=== PATIENT | male | born 1995 | race Caucasian/White ===

== ENCOUNTER 2018-09-17 04:38 | Emergency (ER) | payer OTHER, MEDICAID, SELFPAY ==
[2018-09-17 04:40] VITALS: BP 149/94; PULSE 87; RESP 18; TEMP 36.2; O2SAT 96; BMI 37.2
--- NOTE | 2018-09-17 04:55 | ED.URI ---
HPI - URI/Sore Throat General Chief Complaint: Upper Respiratory Symptoms Stated Complaint: sore throat trouble swallowing fever Time Seen by Provider: 09/17/18 04:42 Source: patient Mode of arrival: ambulatory Limitations: no limitations History of Present Illness HPI Narrative: 23-year-old male, nonsmoker, otherwise healthy presents with a chief complaint of a recurrence sore throat. Two weeks ago he developed runny nose, sore throat and subjective fever with some white exudate on his tonsils. He was seen at another facility, had a rapid strep which was negative. He was told that if his symptoms persisted for a few days to come back and get antibiotics which he did and recently finished amoxicillin. He felt better for few days but is sore throat returns. He admits to runny nose, sneezing, cough, sore throat and left ear pain. He denies any fever. He has no nausea, vomiting or diarrhea. He denies chest pain or shortness of breath. MD Complaint: cough, sore throat, rhinorrhea and nasal congestion Onset (ago): week(s) Duration: intermittent Severity: mild Relieving factors: nothing Exacerbating factors: swallowing Description of mucous: clear and watery Able to tolerate fluids by mouth: Yes Treatments prior to arrival: antibiotics Related Data Previous Rx's Medication Instructions Recorded azithromycin [Zithromax Z-Joseph] 0 tab PO QDAY #6 tab 12/14/16 prednisone 50 mg PO AMCC 5 Days #0 tab 12/14/16 Allergies Allergy/AdvReac Type Severity Reaction Status Date / Time peanut Allergy Mild Unverified 11/27/17 11:54 shellfish derived Allergy Mild SHRIMP-THROAT Unverified 11/27/17 11:54 ITCHY Review of Systems Constitutional Denies chills, Denies fever(s), Denies lethargy and Denies weakness Eyes Denies change in vision, Denies eye discharge, Denies irritation and Denies loss of vision ENT Ears, Nose, Mouth, and Throat: Denies change in voice, Reports nasal congestion, Reports nasal discharge, Denies neck pain and Reports sore throat Cardiovascular Denies chest pain, Denies irregular heart rhythm, Denies lightheadedness, Denies palpitations, Denies dyspnea, Denies dyspnea on exertion and Denies orthopnea Respiratory Reports cough, Denies dyspnea, Denies dyspnea on exertion and Denies wheezing Gastrointestinal Gastrointestinal: Denies abdominal pain, Denies change in bowel habits, Denies diarrhea, Denies nausea and Denies vomiting Genitourinary Denies hematuria, Denies flank pain, Denies urinary incontinence and Denies urinary urgency Musculoskeletal Denies neck pain Integumentary/Breasts Denies pruritus, Denies erythema, Denies rash and Denies wounds Neurologic Denies confusion, Denies loss of vision and Denies weakness Psychiatric Denies anxiety, Denies confusion, Denies depression, Denies homicidal ideation and Denies suicidal ideation Endocrine Denies palpitations Hematologic/Lymphatic Denies easy bruising Allergic/Immunologic Denies wheezing Exam Narrative Exam Narrative: GEN: AOx3 and in mild distress EYES: Pupils are equal, round, and reactive to light and accommodation. Extraoccular muscles are intact bilaterally. There is no subconjunctival hemorrhage or exudate. HEENT: No pharyngeal erythema. No tonsillar swelling or exudate. No cervical lymphadenopathy. Clear post nasal drip. TMs clear, no effusion, erythema or bulging. CHEST: Lungs are clear to auscultation bilaterally and free of wheezes, rales, or rhonchi. Heart rate is regular rhythm, there are no murmurs, clicks, rubs, or gallops. There is no chest wall tenderness. ABD: Abdomen is soft and nontender. There is no guarding or rebound. Bowel sounds are normal in all 4 quadrants. There is no mass or organomegaly. EXT: Full painless ROM of all extremities with no loss of sensation or strength. SKIN: Warm, pink, and dry. No erythema or rash Initial Vital Signs Initial Vital Signs: Vital Signs Temperature 97.2 F L 09/17/18 04:40 Pulse Rate 87 09/17/18 04:40 Respiratory Rate 18 09/17/18 04:40 Blood Pressure 149/94 H 09/17/18 04:40 Pulse Oximetry 96 09/17/18 04:40 Course Orders Ordered: ED Orders 09/17/18 04:58 Influenza A and B by PCR Rapid Stat Vital Signs - 8 hr 09/17/18 04:40 Temperature 97.2 F L Pulse Rate 87 Respiratory Rate 18 Blood Pressure 149/94 H Pulse Oximetry 96 MDM - URI/Sore Throat Lab Data Lab Results 09/17/18 Range/Units 04:58 Influenza A & B (PCR) Negative (Negative) Point of Care Testing Rapid Strep A Negative Discharge Plan Departure Patient Disposition: Home Clinical Impression: Viral URI Instructions: DI for Viral Upper Respiratory Infection -- Adult, DI for Viral Pharyngitis Activity Restrictions/Additional Instructions: *You have been diagnosed with [ viral upper respiratory infection, pharyngitis ] *What to do: *Take medications as directed: [id number]-[id number] cough and cold medicine with antihistamine, decongestants, fever sorter lumber straightener, pain reliever *Follow up with your primary care provider in 2-3 days, call for an appointment. Let them know you were seen in the Emergency Department and that we ask that you be seen in follow up *Return to ER if you should have any new, worsening or concerning symptom Prescriptions: No Action azithromycin [Zithromax Z-Joseph] 250 MG tablet PO QDAY Qty: 6 RF: 0 prednisone 50 MG tablet 50 mg PO AMCC 5 Days Qty: 0 RF: 0
[2018-09-17 05:16] LABS: Influenza A and B by PCR Rapid Negative (Negative)
== END 2018-09-17 05:28 | disposition home or self-care (01) ==
PROVIDERS: Emergency Provider Emergency Medicine; PCP Internal Medicine
DX: J06.9 Acute upper respiratory infection, unspecified (principal)
CPT/HCPCS: 87400; 87880; 99282; 99283

== ENCOUNTER 2018-12-01 16:46 | Emergency (ER) | payer OTHER, MEDICAID, SELFPAY ==
[2018-12-01 16:53] VITALS: BP 154/106; PULSE 98; RESP 14; TEMP 36.4; O2SAT 100
--- NOTE | 2018-12-01 16:57 | DI.RAD.S_ITS ---
PROCEDURE: XR FINGER LT MIN 2V INDICATIONS: puncture wound Left 4th finger, now altered sensation TECHNIQUE: AP hand, 2 views of the left fourth finger(s) acquired. COMPARISON: None. FINDINGS: Bones: No fractures or dislocations. No suspicious bony lesions. Soft tissues: No suspicious soft tissue calcifications. No radiodense foreign bodies. IMPRESSION: No fracture. No osseous lesion. If there are persistent symptoms or clinical suspicion for pathology, then repeat radiographs or advanced imaging (CT, MRI or bone scan) should be considered for further evaluation. Dictated by: Margaret Gonzales MD, PhD on 12/01/2018 at 17:42 Approved by: Margaret Gonzales MD, PhD on 12/01/2018 at 17:43
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
[2018-12-01] MEDS: TET,DIPH,PERTUSS(ACELL),VAC/PF 0.5 ML SYRINGE IM (20:18)
[2018-12-01 20:38] VITALS: BP 141/84; PULSE 85; RESP 16; TEMP 36.2; O2SAT 96
== END 2018-12-01 20:35 | disposition home or self-care (01) ==
PROVIDERS: Emergency Provider Emergency Medicine; PCP Internal Medicine
DX: S61.239A Puncture wound without foreign body of unspecified finger without damage to nail, initial encounter (principal); Y99.0 Civilian activity done for income or pay; Z23 Encounter for immunization
CPT/HCPCS: 73140; 90471; 99282; 99283; 90715

== ENCOUNTER 2020-05-17 18:14 | Emergency (ER) | payer OTHER, MEDICAID, SELFPAY ==
[2020-05-17 18:17] VITALS: BP 174/122; PULSE 85; RESP 20; TEMP 36.9; O2SAT 98
[2020-05-17 18:26] VITALS: PULSE 88; RESP 16; O2SAT 99
[2020-05-17] MEDS: ALBUTEROL HFA 200 PUFF/18 GM INH (COVID POS/VENT PTS) INH (18:26)
[2020-05-17 18:51] VITALS: BP 158/96; PULSE 75; O2SAT 100
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
[2020-05-17] MEDS: LIDO 1%/SOD BICARB 8.4% (10ML) 10 ML SYRINGE INJ (20:00)
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
[2020-05-17 20:40] VITALS: BP 148/91; PULSE 81; RESP 16; O2SAT 99
== END 2020-05-17 20:40 | disposition home or self-care (01) ==
PROVIDERS: Emergency Provider Emergency Medicine; PCP Internal Medicine
DX: S41.112A Laceration without foreign body of left upper arm, initial encounter (principal); W25.XXXA Contact with sharp glass, initial encounter
CPT/HCPCS: 12002; 94640; 99283

== ENCOUNTER 2020-11-15 09:15 | Emergency (ER) | payer OTHER, SELFPAY ==
[2020-11-15] VITALS (10 sets, daily range): BP systolic 150–172; BP diastolic 79–111; PULSE 70–92; RESP 18–20; TEMP 36.8; O2SAT 96–100; BMI 33.9
--- NOTE | 2020-11-15 09:51 | DI.RAD.S_ITS ---
PROCEDURE: XR HAND RT MIN 3V INDICATIONS: fall 30 feet :-0 TECHNIQUE: 3 views of the hand(s) acquired. COMPARISON: [facility], , HAND 3V LEFT, 07/19/2010, 14:40. FINDINGS: Bones: No fractures or dislocations. Carpal bones are normally aligned. No suspicious bony lesions. Soft tissues: No suspicious soft tissue calcifications. IMPRESSION: No acute fracture. No osseous lesion. If symptoms and/or clinical suspicion for pathology persist, further assessment with repeat, or advanced imaging (e.g., CT, MRI, or bone scan) may be helpful for further assessment. Dictated by: Arturo Naidu M.D. on 11/15/2020 at 10:13 Approved by: Arturo Naidu M.D. on 11/15/2020 at 10:13
--- NOTE | 2020-11-15 09:51 | DI.RAD.S_ITS ---
PROCEDURE: XR ANKLE RT MIN 3V INDICATIONS: fall 30 feet :-0 TECHNIQUE: 3 views of the ankle were acquired. COMPARISON: None. FINDINGS: Bones: There is a moderately displaced fracture of the distal aspect of the fibula. There is a small bony fragment adjacent to the medial malleolus. Soft tissues: No tibiotalar joint effusion. Achilles tendon appears normal. IMPRESSION: Bimalleolar ankle fracture. Dictated by: Arturo Naidu M.D. on 11/15/2020 at 10:12 Approved by: Arturo Naidu M.D. on 11/15/2020 at 10:12
--- NOTE | 2020-11-15 10:11 | DI.RAD.S_ITS ---
PROCEDURE: XR LUMBAR SPINE 2-3V INDICATIONS: fall 30 feet TECHNIQUE: 2 views of the lumbar spine were acquired. COMPARISON: [facility], , L-SPINE 2-3 VIEWS, 02/08/2017, 14:38. FINDINGS: Bones: 5 nuy-nsu-onupnpi vertebrae are present. There is mild diffuse leftward curvature of the lumbar spine, and otherwise normal bony alignment. No vertebral body compression fractures. No suspicious bony lesions. Mild multilevel endplate osteophyte formation. Soft tissues: Overlying bowel gas pattern is normal. No suspicious soft tissue calcifications. IMPRESSION: Multilevel degenerative disc disease. No acute fracture. No osseous lesion. If symptoms and/or clinical suspicion for pathology persist, further assessment with repeat, or advanced imaging (e.g., CT, MRI, or bone scan) may be helpful for further assessment. Dictated by: Arturo Naidu M.D. on 11/15/2020 at 10:52 Approved by: Arturo Naidu M.D. on 11/15/2020 at 10:52
--- NOTE | 2020-11-15 10:11 | DI.RAD.S_ITS ---
PROCEDURE: XR CALCANEOUS RT MIN 2V INDICATIONS: fall TECHNIQUE: Two views of the calcaneus were acquired. COMPARISON: None. FINDINGS: Bones: No fractures or dislocations. No suspicious bony lesions. Soft tissues: No suspicious calcifications. Achilles tendon appears normal. IMPRESSION: No acute fracture. No osseous lesion. If symptoms and/or clinical suspicion for pathology persist, further assessment with repeat, or advanced imaging (e.g., CT, MRI, or bone scan) may be helpful for further assessment. Dictated by: Arturo Naidu M.D. on 11/15/2020 at 10:51 Approved by: Arturo Naidu M.D. on 11/15/2020 at 10:51
--- NOTE | 2020-11-15 10:19 | DI.CT.S_ITS ---
PROCEDURE: CT HEAD/BRAIN WO CON INDICATIONS: fall 30 feet TECHNIQUE: Noncontrast 4.5 mm thick angled axial sections acquired from the foramen magnum to the vertex, with coronal and sagittal reformats. For radiation dose reduction, the following was used: automated exposure control, adjustment of mA and/or kV according to patient size. COMPARISON: [facility], CT, CT CERVICAL SPINE WO CON, 11/15/2020, 10:31. [facility], CT, HEAD WITHOUT CONTRAST, 01/23/2011, 16:57. FINDINGS: Image quality: Excellent. CSF spaces: Basal cisterns are patent. No extra-axial fluid collections. Ventricles are normal in size and shape. Brain: No midline shift. No intracranial masses or hemorrhage. Beatty-white matter interface is normal. Skull and face: Calvarium and visualized facial bones are intact, without suspicious lesions. Sinuses: Visualized sinuses and mastoids are clear. IMPRESSION: No acute intracranial hemorrhage is seen. No acute intracranial process is seen. No displaced calvarial fracture can be seen. Dictated by: Thaddeus Williamson M.D. on 11/15/2020 at 9:40 Approved by: Thaddeus Williamson M.D. on 11/15/2020 at 9:41
--- NOTE | 2020-11-15 10:19 | DI.CT.S_ITS ---
PROCEDURE: CT CERVICAL SPINE WO CON INDICATIONS: fall 30 feet TECHNIQUE: Noncontrast 3 mm thick sections acquired from the skull base to the T4 level. Sagittal and coronal reformats were then constructed. For radiation dose reduction, the following was used: automated exposure control, adjustment of mA and/or kV according to patient size. COMPARISON: None. FINDINGS: Image quality: Mild motion artifacts. Bones: Straightening of cervical curvature. No fractures or dislocations. Visualized superior ribs are intact. Soft tissues: Prevertebral soft tissues are normal in thickness. No paravertebral hematomas. No apical pneumothoraces. IMPRESSION: No fractures in cervical spine. Straightening of cervical curvature which may be secondary to muscle spasm or positioning. Dictated by: Nidia Cortez M.D. on 11/15/2020 at 9:41 Approved by: Nidia Cortez M.D. on 11/15/2020 at 9:50
[2020-11-15] MEDS: OXYCODONE/ACETAMINOPHEN 5/325 TABLET 2 TAB PO (10:27)
--- NOTE | 2020-11-15 11:54 | ED_ITS ---
HPI - Fall General Chief Complaint: Fall Stated Complaint: fell on right leg/ankle Time Seen by Provider: 11/15/20 10:10 Source: patient Mode of arrival: Wheelchair Limitations: no limitations History of Present Illness HPI Narrative: Patient is a 25-year-old male who presents is after a 30 ft fall. He says he has at least a 32 ft ladder he was on a roof when it slipped and he fell landing on his right ankle. No head injury or loss of consciousness. Complaining only ankle pain there is an obvious ankle deformity. Able to move toes. He denies any neck or back pain no heel pain. No numbness or tingling MD complaint: fall Onset (ago): hour(s) Fall from: other (Off ladder) Fall witnessed: yes, by bystander Place fall occurred: home Loss of consciousness: none Related Data Home Medications Medication Instructions Recorded Confirmed albuterol sulfate [Ventolin HFA] 1 puff INHALATION PRN PRN 12/01/18 05/20/20 budesonide [Pulmicort Flexhaler] 1 puff INHALATION DIRECTED 12/01/18 05/20/20 methylphenidate HCl 20 mg PO DAILY 12/01/18 05/20/20 venlafaxine 150 mg PO DAILY 12/01/18 05/20/20 Previous Rx's Medication Instructions Recorded sulfamethoxazole-trimethoprim 1 tab PO Q12H #14 tab 12/01/18 hydrocodone-acetaminophen 1 tab PO Q6H PRN #14 tab 11/15/20 Allergies Allergy/AdvReac Type Severity Reaction Status Date / Time peanut Allergy Mild Verified 05/20/20 12:12 shellfish derived Allergy Mild SHRIMP-THROAT Verified 05/20/20 12:12 ITCHY Review of Systems Review of Systems ROS Unobtainable: All systems reviewed & are unremarkable except as noted in HPI and below Constitutional Constitutional: Denies chills, Denies fever(s), Denies lethargy and Denies weakness Eyes Eyes: Denies change in vision, Denies eye discharge, Denies irritation and Denies loss of vision ENT Ears, Nose, Mouth, and Throat: Denies change in voice, Denies neck pain and Denies sore throat Cardiovascular Cardiovascular: Denies chest pain, Denies irregular heart rhythm, Denies lightheadedness, Denies palpitations and Denies orthopnea Musculoskeletal Musculoskeletal: Reports as per HPI, Reports deformity, Reports joint swelling, Denies neck pain and Denies numbness Integumentary/Breasts Skin/Breast: Denies pruritus, Denies erythema, Denies rash and Denies wounds Neurologic Neurologic: Denies loss of vision, Denies numbness and Denies weakness Endocrine Endocrine: Denies palpitations Patient History Medical History (Updated 11/15/20 @ 12:27 by Abi Dinero DO) No active medical problems Surgical History No pertinent past surgical history Social History Smoking Status: Never smoker Smoking Status: Never smoker alcohol intake frequency: 0-2 drinks per day Substance Use Type: marijuana Exam Initial Vital Signs Initial Vital Signs: Vital Signs Temperature 98.2 F 11/15/20 09:36 Pulse Rate 80 11/15/20 09:36 Respiratory Rate 20 11/15/20 09:36 Blood Pressure 170/104 H 11/15/20 09:36 Pulse Oximetry 98 11/15/20 09:36 GENERAL: Well-appearing, well-nourished and in no acute distress. HEENT: Head normocephalic,, EOMI, pupils reactive, face symmetric, moist mucous membranes, no hemotympanum, no septal hematoma NECK: Supple, full range of motion, no step-offs, nontender on vertebrae CARDIOVASCULAR: Regular rate and rhythm without murmurs, rubs or gallops. RESPIRATORY: Breath sounds equal bilaterally, no wheezes rales or rhonchi. No crepitations, no subcutaneous air, chest is nontender, no signs of trauma ABDOMEN: Soft, nontender. Normoactive bowel sounds all 4 quadrants. No guarding or rebound. BACK: Nontender vertebrae, no step-offs, no contusions PELVIS: stable. EXTREMITIES: Normal range of motion, no clubbing or edema. Pelvis stable Right upper extremity: Within normal limits Left upper extremity: Within normal limits Right lower extremity: Obvious lateral swelling and deformity distal pedal pulse intact cap refill less than is 2 seconds no heel pain knees within normal limits no fibular head pain Left lower extremity:Within normal limits NEUROLOGICAL: Cranial nerves II through XII grossly intact. Normal gait and speech. SKIN: Warm, dry, no petechiae, no rashes or lesions, no contusions or ecchymosis Procedures Orthopedic Splinting/Casting Injury #1: Side: right Lower Extremity Injury Location: ankle Lower Extremity Immobilizer: posterior splint and stirrup splint Other Orthopedic Equipment: crutches Post splinting neuro exam: intact Post splinting vascular exam: intact Placed by: Provider Course Orders Ordered: Discontinued Medications Oxycodone/Acetaminophen (Oxycodone/Acetaminophen 5/325 Tablet) 2 tab PO NOW ONE Stop: 11/15/20 10:14 Last Admin: 11/15/20 10:27 Dose: 2 tab Documented by: RAKESH Vital Signs Vital signs: Vital Signs - 8 hr 11/15/20 11:30 11/15/20 11:54 11/15/20 12:00 Pulse Rate 77 78 80 Blood Pressure 158/111 H 165/107 H Pulse Oximetry 96 98 97 11/15/20 12:30 11/15/20 12:31 Pulse Rate 70 76 Blood Pressure 150/79 H Pulse Oximetry 96 97 MDM - Fall Imaging Data CT scan - head: Radiologist's Impression: PROCEDURE: CT HEAD/BRAIN WO CON INDICATIONS: fall 30 feet TECHNIQUE: Noncontrast 4.5 mm thick angled axial sections acquired from the foramen magnum to the vertex, with coronal and sagittal reformats. For radiation dose reduction, the following was used: automated exposure control, adjustment of mA and/or kV according to patient size. COMPARISON: [facility], CT, CT CERVICAL SPINE WO CON, 11/15/2020, 10:31. [facility], CT, HEAD WITHOUT CONTRAST, 01/23/2011, 16:57. FINDINGS: Image quality: Excellent. CSF spaces: Basal cisterns are patent. No extra-axial fluid collections. Ventricles are normal in size and shape. Brain: No midline shift. No intracranial masses or hemorrhage. Beatty-white matter interface is normal. Skull and face: Calvarium and visualized facial bones are intact, without suspicious lesions. Sinuses: Visualized sinuses and mastoids are clear. IMPRESSION: No acute intracranial hemorrhage is seen. No acute intracranial process is seen. No displaced calvarial fracture can be seen. Dictated by: Thaddeus Williamson M.D. on 11/15/2020 at 9:40 CT - cervical spine: Radiologist's Impression: PROCEDURE: CT CERVICAL SPINE WO CON INDICATIONS: fall 30 feet TECHNIQUE: Noncontrast 3 mm thick sections acquired from the skull base to the T4 level. Sagittal and coronal reformats were then constructed. For radiation dose reduction, the following was used: automated exposure control, adjustment of mA and/or kV according to patient size. COMPARISON: None. FINDINGS: Image quality: Mild motion artifacts. Bones: Straightening of cervical curvature. No fractures or dislocations. Visualized superior ribs are intact. Soft tissues: Prevertebral soft tissues are normal in thickness. No paravertebral hematomas. No apical pneumothoraces. IMPRESSION: No fractures in cervical spine. Straightening of cervical curvature which may be secondary to muscle spasm or positioning. Dictated by: Nidia Cortez M.D. on 11/15/2020 at 9:41 Approved by: Nidia Cortez M.D. on 11/15/2020 at 9:50 Extremity x-ray #1: Radiologist's Impression: PROCEDURE: XR ANKLE RT MIN 3V INDICATIONS: fall 30 feet :-0 TECHNIQUE: 3 views of the ankle were acquired. COMPARISON: None. FINDINGS: Bones: There is a moderately displaced fracture of the distal aspect of the fibula. There is a small bony fragment adjacent to the medial malleolus. Soft tissues: No tibiotalar joint effusion. Achilles tendon appears normal. IMPRESSION: Bimalleolar ankle fracture. Dictated by: Arturo Naidu M.D. on 11/15/2020 at 10:12 Extremity x-ray #2: Radiologist's Impression: PROCEDURE: XR HAND RT MIN 3V INDICATIONS: fall 30 feet :-0 TECHNIQUE: 3 views of the hand(s) acquired. COMPARISON: [facility], HAND 3V LEFT, 07/19/2010, 14:40. FINDINGS: Bones: No fractures or dislocations. Carpal bones are normally aligned. No suspicious bony lesions. Soft tissues: No suspicious soft tissue calcifications. IMPRESSION: No acute fracture. No osseous lesion. If symptoms and/or clinical suspicion for pathology persist, further assessment with repeat, or advanced imaging (e.g., CT, MRI, or bone scan) may be helpful for further assessment. Dictated by: Arturo Naidu M.D. on 11/15/2020 at 10:13 Extremity x-ray #3: Radiologist's Impression: PROCEDURE: XR CALCANEOUS RT MIN 2V INDICATIONS: fall TECHNIQUE: Two views of the calcaneus were acquired. COMPARISON: None. FINDINGS: Bones: No fractures or dislocations. No suspicious bony lesions. Soft tissues: No suspicious calcifications. Achilles tendon appears normal. IMPRESSION: No acute fracture. No osseous lesion. If symptoms and/or clinical suspicion for pathology persist, further assessment with repeat, or advanced imaging (e.g., CT, MRI, or bone scan) may be helpful for further assessment. Dictated by: Arturo Naidu M.D. on 11/15/2020 at 10:51 XR Lumbar: Radiologist's Impression: PROCEDURE: XR LUMBAR SPINE 2-3V INDICATIONS: fall 30 feet TECHNIQUE: 2 views of the lumbar spine were acquired. COMPARISON: [facility], , L-SPINE 2-3 VIEWS, 02/08/2017, 14:38. FINDINGS: Bones: 5 [id number] vertebrae are present. There is mild diffuse leftward curvature of the lumbar spine, and otherwise normal bony alignment. No vertebral body compression fractures. No suspicious bony lesions. Mild multilevel endplate osteophyte formation. Soft tissues: Overlying bowel gas pattern is normal. No suspicious soft tissue calcifications. IMPRESSION: Multilevel degenerative disc disease. No acute fracture. No osseous lesion. If symptoms and/or clinical suspicion for pathology persist, further assessment with repeat, or advanced imaging (e.g., CT, MRI, or bone scan) may be helpful for further assessment. Dictated by: Arturo Naidu M.D. on 11/15/2020 at 10:52 Approved by: Arturo Naidu M.D. on 11/15/2020 at 10:52 [facility] Narrative Medical decision making narrative: 12:15 Dr. Palmer reviewed ankle x-ray at this time I agrees with splinting and follow-up Discharge Plan Departure Patient Disposition: Home Clinical Impression: Ankle fracture, right Qualifiers: Encounter type: initial encounter Fracture type: closed Qualified Code(s): S82.891A - Other fracture of right lower leg, initial encounter for closed fracture Instructions: DI for Ankle Fracture Activity Restrictions/Additional Instructions: *You have been diagnosed with right ankle fracture *What to do: Keep splint on at all times, no weight-bearing use crutches. May ice through the splint *Continue to take medications as directed [place] 1-2 tablets every 6 hours if needed for severe pain--> SENT TO [facility] *Follow up with your primary care provider in 2-3 days Call orthopedics today to schedule follow-up appointment in about 1 week *Return to ER if you should have numbness tingling, increasing pain or any new, worsening or concerning symptoms CONTROLLED SUBSTANCE DISCHARGE (Narcotoic/benzodiazepine/Flexeril/Phenergan) 1. You have been prescribed narcotic medications, it does have acetaminophen/Tylenol/paracetamol in it, DO NOT TAKE MORE THAN 4,00mg in 24 hours of Tylenol. TRAMADOL DOES NOT CONTAIN TYLENOL 2. Please understand that we cannot provide further refills of narcotics, benzodiazepines or controlled substances through the ED and her pain management will need to be through your provider. 3. While on these medications you cannot drive or operate heavy machinery. 4. You cannot sign legal documents or perform any duties such as this. 5. As long as you're taking opiate pain medications he should also be taking a stool softener such as Colace, Dulcolax, MiraLAX or prune juice, to help avoid constipation. Prescriptions: New hydrocodone-acetaminophen 5-325 mg tablet 1 tab PO Q6H PRN (Reason: pain) Qty: 14 RF: 0 No Action venlafaxine 150 mg capsule,extended release 24hr 150 mg PO DAILY RF: 0 methylphenidate HCl 20 mg tablet extended release 20 mg PO DAILY RF: 0 albuterol sulfate [Ventolin HFA] 90 mcg/actuation HFA aerosol inhaler 1 puff Inhalation PRN PRN (Reason: Shortness Of Breath) RF: 0 Pulmicort Flexhaler 180 mcg/actuation aerosol powdr breath activated 1 puff Inhalation DIRECTED RF: 0 sulfamethoxazole-trimethoprim 800-160 mg tablet 1 tab PO Q12H Qty: 14 RF: 0 Referrals: [facility] [Provider Group] Santiago Knowles MD [Primary Care Provider] -
== END 2020-11-15 12:39 | disposition home or self-care (01) ==
PROVIDERS: Emergency Provider Emergency Medicine; PCP Internal Medicine
DX: S82.841A Displaced bimalleolar fracture of right lower leg, initial encounter for closed fracture (principal); W11.XXXA Fall on and from ladder, initial encounter
CPT/HCPCS: 29515; 70450; 72100; 72125; 73130; 73610; 73650; 99284

== ENCOUNTER → 2020-11-29 10:05 | Outpatient (CLI) | payer OTHER, MEDICAID, SELFPAY ==
[2020-11-29] MEDS: COVID-19 VACC #1, MRNA(MOD) 100 MCG/0.5 ML VIAL IM (10:16)
== END ==
PROVIDERS: PCP Internal Medicine; Visit Provider Internal Medicine
DX: Z23 Encounter for immunization (principal)
CPT/HCPCS: 0011A; 91301

== ENCOUNTER → 2020-12-28 10:07 | Outpatient (CLI) | payer OTHER, MEDICAID, SELFPAY ==
[2020-12-28] MEDS: COVID-19 VACC #2, MRNA(MOD) 100 MCG/0.5 ML VIAL IM (10:26)
== END ==
PROVIDERS: PCP Internal Medicine; Visit Provider Internal Medicine
DX: Z23 Encounter for immunization (principal)
CPT/HCPCS: 0012A; 91301

== ENCOUNTER 2021-06-01 02:30 | Emergency (ER) | payer OTHER, MEDICAID, SELFPAY ==
--- NOTE | 2021-06-01 02:32 | DI.RAD.S_ITS ---
PROCEDURE: XR HAND RT MIN 3V INDICATIONS: fall onto glass, laceration TECHNIQUE: 3 views of the hand(s) acquired. COMPARISON: [facility], CR, XR HAND RT MIN 3V, 11/15/2020, 9:54. FINDINGS: Bones: No fractures or dislocations. Carpal bones are normally aligned. No suspicious bony lesions. Soft tissues: No suspicious soft tissue calcifications. No radiodense foreign body. IMPRESSION: No fracture. No osseous lesion. If symptoms and/or clinical suspicion for pathology persists, further assessment with repeat radiographs (7-10 days) or advanced imaging (e.g. CT, MRI or bone scan) should be considered. Dictated by: Margaret Gonzales MD, PhD on 06/01/2021 at 7:53 Approved by: Margaret Gonzales MD, PhD on 06/01/2021 at 7:54
--- NOTE | 2021-06-01 02:33 | ED_ITS ---
HPI - Extremity Problem General Chief complaint: Wound/Laceration Stated complaint: cut hand Time Seen by Provider: 06/01/21 02:32 Source: patient Mode of arrival: Ambulatory Limitations: no limitations History of Present Illness HPI Narrative: This is a 26-year-old male who has a laceration to his right hand over the thenar eminence. Patient states he was in a hotel room when he tripped and fell on outstretched hand onto a glass. Patient states the glass was on the floor. He is unsure hip all the pieces were present and accounted for afterwards. He states it bled quite a bit. He has some tingling in his thumb that started on his drive here but denies any other numbness or tingling elsewhere. He states it seems like things are moving appropriately. This happened about 12 30 in the morning he initially went to the emergency department in [place] but had an extended wait so came to us. States he has a history of asthma. Denies any other medical issues. States he has screws in his left. States he is otherwise healthy. States he is up-to-date on his tetanus. No tobacco, occasional alcohol. Patient states he did have a small amount of alcohol earlier in the evening. Denies any illicit. Related Data Home Medications Medication Instructions Recorded Confirmed albuterol sulfate 90 mcg/actuation 1 puff INHALATION PRN PRN 12/01/18 05/20/20 aerosol inhaler budesonide 180 mcg/actuation 1 puff INHALATION DIRECTED 12/01/18 05/20/20 breath activated powder inhaler methylphenidate HCl 20 mg 20 mg PO DAILY 12/01/18 05/20/20 tablet,extended release venlafaxine 150 mg 150 mg PO DAILY 12/01/18 05/20/20 capsule,extended release 24 hr Previous Rx's Medication Instructions Recorded sulfamethoxazole 800 1 tab PO Q12H #14 tab 12/01/18 mg-trimethoprim 160 mg tablet hydrocodone 5 mg-acetaminophen 325 1 tab PO Q6H PRN #14 tab 11/15/20 mg tablet Allergies Allergy/AdvReac Type Severity Reaction Status Date / Time peanut Allergy Mild Verified 05/20/20 12:12 shellfish derived Allergy Mild SHRIMP-THROAT Verified 05/20/20 12:12 ITCHY Review of Systems Review of Systems ROS Unobtainable: All systems reviewed & are unremarkable except as noted in HPI and below Patient History Medical History (Updated 06/01/21 @ 02:40 by Renate Le DO) No active medical problems Surgical History No pertinent past surgical history Social History Smoking Status: Never smoker Smoking Status: Never smoker alcohol intake frequency: 0-2 drinks per day Substance Use Type: marijuana Exam Narrative Exam Narrative: GENERAL: Alert and oriented x three, male in mild distress. HEENT: Head normocephalic, atraumatic, EOMI, pupils reactive, face symmetric, moist mucous membranes NECK: Supple, full range of motion CARDIOVASCULAR: Regular rate and rhythm without murmurs, rubs or gallops. RESPIRATORY: Breath sounds equal bilaterally, no wheezes rales or rhonchi. ABDOMEN: Soft, nontender. Normoactive bowel sounds all 4 quadrants. No guarding or rebound, rigidity, no mass EXTREMITIES: Normal range of motion, no clubbing or edema. Neurovascularly intact. Patient has a 3 cm laceration over the thenar eminence of his right hand. It is gapped. No obvious tendon or ligamentous involvement, it is into the subcutaneous tissue. Has flexion extension of all 5 fingers he is able to make the okay sign. He is neurovascularly intact in all 5 fingers with cap refill less than 2 seconds. Sensation to light touch with 2+ radial pulse. NEUROLOGICAL: Cranial nerves II through XII grossly intact. Moving all extre mities SKIN: Warm, dry, no petechiae, no rashes or lesions otherwise noted. Initial Vital Signs Initial Vital Signs: Vital Signs Temperature 97.8 F 06/01/21 02:45 Pulse Rate 100 H 06/01/21 02:45 Respiratory Rate 16 06/01/21 02:45 Blood Pressure 157/94 H 06/01/21 02:45 Pulse Oximetry 96 06/01/21 02:45 Procedures Laceration Repair Laceration 1: Time of procedure: 03:53 Site: hand (palmar) Side (If applicable): right Size (cm): 3.5 Description: flap and irregular Depth: simple, single layer and involves muscle layer Local Anesthetic: lidocaine 1% Amount of anesthesia used (mL): 6 Pre-repair: wound explored, irrigated extensively and deep structures intact Skin layer closed with: nylon Size (cm): 4-0 Number of sutures: 7 Technique: simple, interrupted Course Orders Ordered: ED Orders 06/01/21 02:32 XR hand RT min 3V Stat Discontinued Medications Bacitracin (Bacitracin Oint 0.9 Gm Pckt) 2 applic TOP NOW ONE Stop: 06/01/21 04:01 Last Admin: 06/01/21 04:03 Dose: 2 applic Documented by: JAIME Lidocaine/Sodium Bicarbonate (Lido 1%/Sod Bicarb 8.4% (10ml) 10 Ml Syringe) 10 ml INJ NOW ONE Stop: 06/01/21 02:33 Last Admin: 06/01/21 03:27 Dose: 10 ml Documented by: CHETAN Ondansetron HCl (Ondansetron 4 Mg Odt) 4 mg SL NOW ONE Stop: 06/01/21 03:23 Last Admin: 06/01/21 03:27 Dose: 4 mg Documented by: CHETAN Reevaluation(s) Reevaluation #1: Patient taken lightheaded while we were numbing and suturing the patient and had nausea and vomiting and diaphoresis. Patient states feeling the needles made him feel quite sick. Did receive 1 tablet of Zofran. Vital Signs Vital signs: Vital Signs - 8 hr 06/01/21 02:45 06/01/21 04:29 Temperature 97.8 F Pulse Rate 100 H 69 Respiratory Rate 16 20 Blood Pressure 157/94 H 141/65 H Pulse Oximetry 96 99 [facility] - Extremity (Nontraumatic) Imaging Data Extremity x-ray #1: Radiologist's Impression: nap, no radioopaque FB noted. [facility] Narrative Medical decision making narrative: This is a 26-year-old male comes with complaint of laceration to the thenar eminence of the right hand. Patient's dominant hand is his left. He has full range of motion. I am unable to visualize any obvious tendon involvement but he does complain of some tingling to the thumb. Patient had suture repair which was in but full for patient having foot quite lightheaded tracie Hink numbing and diaphoretic and nauseated and vomited several times. This did improve. Patient had repair of his laceration. He and I discussed would be appropriate to follow up with Orthopedic surgery based on his symptoms. Referral was given. Wound care directions as well and return precautions. Patient was observed for. Here in the department he was able to ambulate without issue and feels back to normal at this time. Discharge Plan Departure Patient Disposition: Home Clinical Impression: Laceration of right palm Qualifiers: Encounter type: initial encounter Qualified Code(s): S61.411A - Laceration without foreign body of right hand, initial encounter Instructions: DI for Laceration Repair Activity Restrictions/Additional Instructions: Follow-up with orthopedic surgery recheck if having any difficulty with movement of your fingers your continue numbness or tingling. Referral is included below. Call this morning to set up an appointment. You will need to follow up for suture removal in 7-10 days with either primary care, urgent care or emergency department. Can take Tylenol up to a 1000 mg every 8 hours and/or ibuprofen up to 800 mg every 8 hours. Wound Care: Keep wound(s) clean and dry. Wash daily with soap and water only. Do not use over the counter products (alcohol or peroxide)on the wounds unless instructed by a physician. If wound condition worsens (increased/expanding redness, developing fluid blisters, or worsening pain), either contact your doctor for an urgent re- assessment , or return to the Emergency Department. Return to the Emergency Department for any new or worsening symptoms. Return to the ED, urgent care, or visit a primary care doctor for removal or suture or nhung in 7-10 days. Return if fever greater than 100.4 Fahrenheit, increased swelling, increasing pain or worsening symptoms such as increased discharge or spreading redness. No worsening numbness, tingling or weakness, inability to flex or extend her fingers. Rapidly worsening pain, color changes or other new or concerning symptoms. Prescriptions: No Action venlafaxine 150 mg capsule,extended release 24hr 150 mg PO DAILY RF: 0 methylphenidate HCl 20 mg tablet extended release 20 mg PO DAILY RF: 0 albuterol sulfate [Ventolin HFA] 90 mcg/actuation HFA aerosol inhaler 1 puff Inhalation PRN PRN (Reason: Shortness Of Breath) RF: 0 Pulmicort Flexhaler 180 mcg/actuation aerosol powdr breath activated 1 puff Inhalation DIRECTED RF: 0 sulfamethoxazole-trimethoprim 800-160 mg tablet 1 tab PO Q12H Qty: 14 RF: 0 hydrocodone-acetaminophen 5-325 mg tablet 1 tab PO Q6H PRN (Reason: pain) Qty: 14 RF: 0 Referrals: Kell Duran MD [Physician] - Santiago Knowles MD [Primary Care Provider] - Stand Alone Forms: Work Release Note
[2021-06-01 02:45] VITALS: BP 157/94; PULSE 100; RESP 16; TEMP 36.6; O2SAT 96
[2021-06-01] MEDS: LIDO 1%/SOD BICARB 8.4% (10ML) 10 ML SYRINGE INJ (03:27)
[2021-06-01] MEDS: ONDANSETRON 4 MG ODT SL (03:27)
[2021-06-01] MEDS: BACITRACIN OINT 0.9 GM PCKT 2 APPLIC TOP (04:03)
[2021-06-01 04:29] VITALS: BP 141/65; PULSE 69; RESP 20; O2SAT 99
== END 2021-06-01 04:31 | disposition home or self-care (01) ==
PROVIDERS: Emergency Provider Emergency Medicine; PCP Internal Medicine
DX: S61.411A Laceration without foreign body of right hand, initial encounter (principal); W01.110A Fall on same level from slipping, tripping and stumbling with subsequent striking against sharp glass, initial encounter
CPT/HCPCS: 12002; 73130; 99283; 99284

== ENCOUNTER 2021-08-13 21:59 | Emergency (ER) | payer OTHER, MEDICAID, SELFPAY ==
--- NOTE | 2021-08-13 22:15 | ED_ITS ---
HPI - General Adult General Chief complaint: Psychiatric Symptoms Stated complaint: Vol SI Time Seen by Provider: 08/13/21 22:04 Source: patient and police Mode of arrival: other (Police) Limitations: no limitations History of Present Illness HPI narrative: Patient is a 26-year-old male. Does have a history of depression and anxiety. He states when he was in grade school he saw therapist but has not seen anyone since then. He takes no medications for depression or anxiety. Does take methylphenidate. He states that over the past couple months he has had difficulty with depression. This is mostly stemming around the fact that his grandmother is ?running out of money ?and cannot pay her rent and he is having difficulty finding a place for her to stay here in the local area. Patient's father is . Mother is no longer around. Patient does have a job. Does have a car. Does rent his own room. He states that the holiday has been especially hard for him. This evening he was drinking alcohol. He started to have depressive thoughts. He stated that he had thoughts of taking all of his medications at once in order to kill himself. He stated that he texted 911. One of the local police officers came and talked with him. Patient states that he actually feels much better after talking with the chief of police. He states that he is no longer suicidal because he like to talking with the chief of police and was able to express feelings to the chief of police. He did come here v oluntarily. Related Data Home Medications Medication Instructions Recorded Confirmed albuterol sulfate 90 mcg/actuation 1 puff INHALATION PRN PRN 12/01/18 05/20/20 aerosol inhaler budesonide 180 mcg/actuation 1 puff INHALATION DIRECTED 12/01/18 05/20/20 breath activated powder inhaler methylphenidate HCl 20 mg 20 mg PO DAILY 12/01/18 05/20/20 tablet,extended release venlafaxine 150 mg 150 mg PO DAILY 12/01/18 05/20/20 capsule,extended release 24 hr Previous Rx's Medication Instructions Recorded sulfamethoxazole 800 1 tab PO Q12H #14 tab 12/01/18 mg-trimethoprim 160 mg tablet hydrocodone 5 mg-acetaminophen 325 1 tab PO Q6H PRN #14 tab 11/15/20 mg tablet Allergies Allergy/AdvReac Type Severity Reaction Status Date / Time peanut Allergy Mild Verified 05/20/20 12:12 shellfish derived Allergy Mild SHRIMP-THROAT Verified 05/20/20 12:12 ITCHY Review of Systems Constitutional Constitutional: Reports system reviewed and no additional complaints, except as documented Cardiovascular Cardiovascular: Reports system reviewed and no additional complaints, except as documented Respiratory Respiratory: Reports system reviewed and no additional complaints, except as documented Gastrointestinal Gastrointestinal: Reports system reviewed and no additional complaints, except as documented Psychiatric Psychiatric: Reports system reviewed and no additional complaints, except as documented and Reports as per HPI Allergic/Immunologic Allergic/Immunologic: Reports system reviewed and no additional complaints, except as documented Patient History Medical History (Updated 08/13/21 @ 23:36 by Shawn Hernandez DO) No active medical problems Surgical History No pertinent past surgical history Social History Smoking Status: Never smoker Smoking Status: Never smoker alcohol intake frequency: 0-2 drinks per day Substance Use Type: marijuana Exam Initial Vital Signs Initial Vital Signs: Vital Signs Temperature 97.5 F L 08/13/21 22:34 Pulse Rate 110 H 08/13/21 22:34 Respiratory Rate 20 08/13/21 22:34 Blood Pressure 126/76 08/13/21 22:34 Pulse Oximetry 99 08/13/21 22:34 Const General: cooperative, healthy appearing, comfortable, well developed and well groomed Limitations: mental status not altered HENNE Head: normal to inspection and normocephalic Resp Effort & Inspection: normal respiratory effort Cardio Rate: tachycardic GI Inspection: normal to inspection Skin General: no rashes or lesions noted Neuro General: patient alert, patient awake, patient oriented x3 and moves all extremities Extrem General: normal to inspection and capillary refill normal Psych Appearance: grossly normal and well kempt Mood: not anxious Affect: sad Attitude: cooperative Judgment: fair Course Orders Ordered: ED Orders 08/13/21 22:06 Consult to VETERINARY ASSISTANT - Wall And Floor Tiler Stat 08/13/21 22:25 Acetaminophen Stat COVID19 -Nasal swab/Pre-Proc Stat Complete Blood Count AUTO DIFF Stat Comprehensive Metabolic Panel Stat Ethanol (ETOH) Stat Lipase Stat Thyroid Stimulating Hormone Stat 08/13/21 22:48 Urinalysis and Microscopic Stat Urine Drug Screen, Rapid Stat Vital Signs Vital signs: Vital Signs - 8 hr 08/13/21 22:34 Temperature 97.5 F L Pulse Rate 110 H Respiratory Rate 20 Blood Pressure 126/76 Pulse Oximetry 99 Medical Decision Making Lab Data Lab results reviewed: Yes I reviewed the patient's lab results. Result diagrams: 08/13/21 22:25 08/13/21 22:25 Labs: Lab Results 08/13/21 08/13/21 08/13/21 Range/Units 22:25 22:25 22:25 WBC 7.9 (4.5-11.0) X10^3/uL RBC 5.14 (4.5-5.9) X10^6/uL Hgb 16.5 (13.5-17.5) g/dL Hct 46.3 (41-53) % MCV 90.1 (80-100) fL MCH 32.0 (26-34) PG MCHC 35.5 (30-36) % RDW 13.6 (11.6-14.8) % Plt Count 249 (150-400) X10^3/uL Neut % (Auto) 54.5 (50-75) % Lymph % (Auto) 30.3 (25-40) % [place] % (Auto) 6.0 (3-14) % Eos % (Auto) 8.3 H (2-4) % Baso % (Auto) 0.9 (0-2) % Neut # (Auto) 4300 (5047-8476) /uL Lymph # (Auto) 2400 (1949-3488) /uL [place] # (Auto) 500 (0-900) /uL Eos # (Auto) 700 H (0-450) /uL Baso # (Auto) 100 (0-100) /uL Sodium 143 (137-145) mmol/L Potassium 3.5 (3.4-5.1) mmol/L Chloride 107 (98-107) mmol/L Carbon Dioxide 23 (22-32) mmol/L BUN 7 L (9-20) mg/dL Creatinine 0.94 (0.66-1.25) mg/dL Estimated GFR > 60.0 (>60) mL/min BUN/Creatinine Ratio 7.4 (6-22) Glucose 115 H (70-100) mg/dL Calcium 9.2 (8.4-10.2) mg/dL Total Bilirubin 0.4 (0.2-1.3) mg/dL AST 25 (17-59) IU/L ALT 22 (<50) IU/L Alkaline Phosphatase 61 (38-126) U/L Total Protein 8.1 (6.3-8.2) g/dL Albumin 4.8 (3.5-5.0) g/dL Globulin 3.3 (1.7-4.1) g/dL Albumin/Globulin Ratio 1.5 (1.0-2.8) Lipase 70 (23-300) U/L TSH 4.07 (0.47-4.68) uIU/mL Urine Color Urine Appearance Urine pH (4.5-8.0) Ur Specific [place] (1.000-1.035) Urine Protein (Negative) Urine Glucose (UA) (Negative) g/dL Urine Ketones (NEGATIVE) Urine Occult Blood (Negative) Urine Nitrate (Negative) Urine Bilirubin (NEGATIVE) Urine Urobilinogen (0.2) E.U./dL Ur Leukocyte Esterase (NEGATIVE) Urine RBC (0-5/HPF) Urine WBC (0-5/HPF) Urine Bacteria (None) Ur Culture Indicated? U Opiates 300ng/mL cut (Negative) Ur Oxycodone Screen (Negative) Urine Methadone Screen (Negative) Acetaminophen < 10 L (10-30) ug/mL Ur Barbiturates Screen (Negative) U Tricyclic Antidepress (Negative) Ur Phencyclidine Scrn (Negative) Ur Amphetamines Screen (Negative) U Methamphetamines Scrn (Negative) Ur MDMA Scrn (Ecstasy) (Negative) U Benzodiazepines Scrn (Negative) Urine Cocaine Screen (Negative) U Marijuana (THC) Screen (Negative) Ethyl Alcohol 173 H ( - 10) mg/dL SARS-CoV-2 (PCR) (Negative) 08/13/21 08/13/21 08/13/21 Range/Units 22:25 22:48 22:48 WBC (4.5-11.0) X10^3/uL RBC (4.5-5.9) X10^6/uL Hgb (13.5-17.5) g/dL Hct (41-53) % MCV (80-100) fL MCH (26-34) PG MCHC (30-36) % RDW (11.6-14.8) % Plt Count (150-400) X10^3/uL Neut % (Auto) (50-75) % Lymph % (Auto) (25-40) % [place] % (Auto) (3-14) % Eos % (Auto) (2-4) % Baso % (Auto) (0-2) % Neut # (Auto) (3628-0503) /uL Lymph # (Auto) (4501-4746) /uL [place] # (Auto) (0-900) /uL Eos # (Auto) (0-450) /uL Baso # (Auto) (0-100) /uL Sodium (137-145) mmol/L Potassium (3.4-5.1) mmol/L Chloride (98-107) mmol/L Carbon Dioxide (22-32) mmol/L BUN (9-20) mg/dL Creatinine (0.66-1.25) mg/dL Estimated GFR (>60) mL/min BUN/Creatinine Ratio (6-22) Glucose (70-100) mg/dL Calcium (8.4-10.2) mg/dL Total Bilirubin (0.2-1.3) mg/dL AST (17-59) IU/L ALT (<50) IU/L Alkaline Phosphatase (38-126) U/L Total Protein (6.3-8.2) g/dL Albumin (3.5-5.0) g/dL Globulin (1.7-4.1) g/dL Albumin/Globulin Ratio (1.0-2.8) Lipase (23-300) U/L TSH (0.47-4.68) uIU/mL Urine Color Yellow Urine Appearance Clear Urine pH 7.0 (4.5-8.0) Ur Specific [place] <=1.005 (1.000-1.035) Urine Protein Negative (Negative) Urine Glucose (UA) Negative (Negative) g/dL Urine Ketones Negative (NEGATIVE) Urine Occult Blood Negative (Negative) Urine Nitrate Negative (Negative) Urine Bilirubin Negative (NEGATIVE) Urine Urobilinogen 0.2 (0.2) E.U./dL Ur Leukocyte Esterase Negative (NEGATIVE) Urine RBC None seen (0-5/HPF) Urine WBC None seen (0-5/HPF) Urine Bacteria None seen (None) Ur Culture Indicated? Cult not indicated U Opiates 300ng/mL cut Negative (Negative) Ur Oxycodone Screen Negative (Negative) Urine Methadone Screen Negative (Negative) Acetaminophen (10-30) ug/mL Ur Barbiturates Screen Negative (Negative) U Tricyclic Antidepress Negative (Negative) Ur Phencyclidine Scrn Negative (Negative) Ur Amphetamines Screen Negative (Negative) U Methamphetamines Scrn Negative (Negative) Ur MDMA Scrn (Ecstasy) Negative (Negative) U Benzodiazepines Scrn Negative (Negative) Urine Cocaine Screen Negative (Negative) U Marijuana (THC) Screen Positive H (Negative) Ethyl Alcohol ( - 10) mg/dL SARS-CoV-2 (PCR) Negative (Negative) MDM Narrative Medical decision making narrative: During his time here patient is calm. He states that he is no longer suicidal. He stated that the thing that helped him the most was talking to the chief of police. He states he has had suicidal thoughts on a daily basis for at least the past 6 months. Has never tried to hurt himself in the past. He was unsure exactly what may things peak earlier today but currently feels much better. He states he would like to go home. He states he feels safe going home. He stated that he would contact the the police or the crisis line or return to the em ergency department if he started to have thoughts of hurting himself again. He states that he does need to go to work tomorrow. He states he does not go to work you will not be able to pay rent which is due the end of this week. This does provide insight into his ability to think forward ended future events. I contacted the [facility] and they will contact him tomorrow at around noon. I told the patient this. He stated that he would answer the phone and talk with them. He can also get information from them with regard to long-term counseling. The police were willing to come to the emergency department in take him home because the tax season not running given the weather and the snow on the ground. Patient is agreeable with discharge Discharge Plan Departure Patient Disposition: Home Clinical Impression: Suicidal ideation, Alcohol intoxication Instructions: DI for Suicidal Ideation-Adult Activity Restrictions/Additional Instructions: You should be receiving a phone call tomorrow at noon from the [facility] to check in. Continue to take all of your medications as directed. Please contact the crisis lines at the numbers that were provided if you start to have thoughts of wanting to hurt yourself again. Prescriptions: No Action venlafaxine 150 mg capsule,extended release 24hr 150 mg PO DAILY 0RF methylphenidate HCl 20 mg tablet extended release 20 mg PO DAILY 0RF albuterol sulfate [Ventolin HFA] 90 mcg/actuation HFA aerosol inhaler 1 puff Inhalation PRN PRN (Reason: Shortness Of Breath) 0RF Pulmicort Flexhaler 180 mcg/actuation aerosol powdr breath activated 1 puff Inhalation DIRECTED 0RF sulfamethoxazole-trimethoprim 800-160 mg tablet 1 tab PO Q12H Qty: 14 0RF hydrocodone-acetaminophen 5-325 mg tablet 1 tab PO Q6H PRN (Reason: pain) Qty: 14 0RF Referrals: Santiago Knowles MD [Primary Care Provider] -
[2021-08-13 22:34] VITALS: BP 126/76; PULSE 110; RESP 20; TEMP 36.4; O2SAT 99
[2021-08-13 22:40] LABS: Add Manual Diff / Slide Review NO; Basophils Absolute Auto 100 /uL (0-100); Basophils Percent Auto 0.9 % (0-2); Eosinophils Absolute Auto 700 /uL (0-450); Eosinophils Percent Auto 8.3 % (2-4); Hematocrit 46.3 % (41-53); Hemoglobin 16.5 g/dL (13.5-17.5); Lymphocytes Absolute Auto 2400 /uL (1100-4500); Lymphocytes Percent Auto 30.3 % (25-40); Mean Corpuscular HGB Conc 35.5 % (30-36); Mean Corpuscular Volume 90.1 fL (80-100); Monocytes Absolute Auto 500 /uL (0-900); Neutrophils Absolute Auto 4300 /uL (1500-7000); Neutrophils Percent Auto 54.5 % (50-75); Platelet Count 249 X10^3/uL (150-400); Red Blood Cell Count 5.14 X10^6/uL (4.5-5.9); Red Cell Distribution Width 13.6 % (11.6-14.8); White Blood Cell Count 7.9 X10^3/uL (4.5-11.0)
[2021-08-13 22:43] LABS: Acetaminophen < 10 ug/mL (10-30); Alanine Aminotransferase 22 IU/L (<50); Albumin 4.8 g/dL (3.5-5.0); Albumin Globulin Ratio 1.5 (1.0-2.8); Alkaline Phosphatase 61 U/L (38-126); Aspartate Aminotransferase 25 IU/L (17-59); BUN Creatinine Ratio 7.4 (6-22); Bilirubin Total 0.4 mg/dL (0.2-1.3); Blood Urea Nitrogen 7 mg/dL (9-20); Calcium 9.2 mg/dL (8.4-10.2); Carbon Dioxide 23 mmol/L (22-32); Chloride 107 mmol/L (98-107); Estimated Glomerular Filt Rate > 60.0 mL/min (>60); Ethanol (ETOH) 173 mg/dL; Globulin 3.3 g/dL (1.7-4.1); Glucose 115 mg/dL (70-100); HEMOLYSIS < 15 (0-50); Lipase 70 U/L (23-300); Potassium 3.5 mmol/L (3.4-5.1); Sodium 143 mmol/L (137-145); Total Protein 8.1 g/dL (6.3-8.2)
[2021-08-13 22:50] LABS: Appearance Urine UA CLEAR; Bilirubin Urine UA NEGATIVE (NEGATIVE); Color Urine UA YELLOW; Glucose Urine UA NEGATIVE (Negative); Ketones Urine UA NEGATIVE (NEGATIVE); Leukocyte Esterase Urine UA NEGATIVE (NEGATIVE); Nitrite Urine UA NEGATIVE (Negative); Occult Blood Urine UA NEGATIVE (Negative); Protein Urine UA NEGATIVE (Negative); Specific Gravity Urine UA <=1.005 (1.000-1.035); Urobilinogen Urine UA 0.2 E.U./dL (0.2)
[2021-08-13 22:55] LABS: UR Morphine/Opiate cutoff 300 Negative (Negative); Ur Creatinine Normal (Normal); Ur Specific Gravity Normal (Normal); Urine Amphetamines Negative (Negative); Urine Barbiturates Negative (Negative); Urine Cocaine Negative (Negative); Urine MDMA Negative (Negative); Urine Methamphetamines Negative (Negative); Urine Phencyclidine Negative (Negative); Urine Tetrahydrocannabinol Positive (Negative); Urine pH Normal (Normal)
[2021-08-13 22:56] LABS: Bacteria Urine None Seen; RBC Urine None Seen (0-5/HPF); Urine Benzodiazepines Negative (Negative); Urine Methadone Negative (Negative); Urine Oxycodone Negative (Negative); Urine Tricyclic Antidepressant Negative (Negative); WBC Urine None Seen (0-5/HPF)
[2021-08-13 22:57] LABS: Culture Indicated Urine Cult Not Indicated
[2021-08-13 23:02] LABS: COVID19 -Nasal RAPID Negative (Negative)
[2021-08-13 23:22] LABS: Thyroid Stimulating Hormone 4.07 uIU/mL (0.47-4.68)
== END 2021-08-13 23:46 | disposition home or self-care (01) ==
PROVIDERS: Emergency Provider Emergency Medicine; PCP Internal Medicine
DX: R45.851 Suicidal ideations (principal); F10.129 Alcohol abuse with intoxication, unspecified; Y90.6 Blood alcohol level of 120-199 mg/100 ml; Z20.822 Contact with and (suspected) exposure to COVID-19
CPT/HCPCS: 80053; 80305; 80320; 80329; 81001; 83690; 84443; 85025; 87635; 99283; C9803; G0480

== ENCOUNTER 2022-01-18 08:59 | Emergency (ER) | payer OTHER, MEDICAID, SELFPAY ==
[2022-01-18 09:00] VITALS: BP 157/96; PULSE 84; RESP 14; TEMP 36.9; O2SAT 99; BMI 33.3
[2022-01-18] MEDS: TET,DIPH,PERTUSS(ACELL),VAC/PF 0.5 ML SYRINGE IM (09:33)
--- NOTE | 2022-01-18 10:19 | ED_ITS ---
HPI - Wound/Laceration General Chief Complaint: Wound/Laceration Stated Complaint: Cut right thumb with Olivier knife Time Seen by Provider: 01/18/22 10:08 Source: patient Mode of arrival: Ambulatory Limitations: no limitations History of Present Illness HPI narrative: This is a 26-year-old male with laceration to his thumb. Patient was cleaning out his car he had a utility blade underneath some papers and did not realize that it was exposed. He grabbed it cut his distal thumb. Patient is unsure of his tetanus status. He states it would stop bleeding this morning so he came in for evaluation. He states that occurred today. He denies any other injuries. No numbness or loss of sensation. Patient denies medical issues otherwise. No tobacco, occasional alcohol, occasional THC. Related Data Home Medications Medication Instructions Recorded Confirmed budesonide 180 mcg/actuation 1 puff INHALATION DIRECTED 12/01/18 05/20/20 breath activated powder inhaler methylphenidate HCl 20 mg 20 mg PO DAILY 12/01/18 05/20/20 tablet,extended release venlafaxine 150 mg 150 mg PO DAILY 12/01/18 05/20/20 capsule,extended release 24 hr Previous Rx's Medication Instructions Recorded sulfamethoxazole 800 1 tab PO Q12H #14 tab 12/01/18 mg-trimethoprim 160 mg tablet hydrocodone 5 mg-acetaminophen 325 1 tab PO Q6H PRN #14 tab 11/15/20 mg tablet albuterol sulfate 90 mcg/actuation 1 puff INHALATION PRN PRN #8.5 g 11/16/21 aerosol inhaler Allergies Allergy/AdvReac Type Severity Reaction Status Date / Time peanut Allergy Mild Verified 01/18/22 09:05 shellfish derived Allergy Mild SHRIMP-THROAT Verified 01/18/22 09:05 ITCHY Review of Systems Review of Systems ROS Unobtainable: All systems reviewed & are unremarkable except as noted in HPI and below Patient History Medical History (Updated 01/18/22 @ 10:51 by Renate Le DO) No active medical problems Surgical History No pertinent past surgical history Social History Smoking Status: Never smoker Smoking Status: Never smoker alcohol intake frequency: 0-2 drinks per day Substance Use Type: marijuana Exam Narrative Exam Narrative: GENERAL: Alert and oriented x three, male in mild distress. HEENT: Head normocephalic, atraumatic, EOMI, pupils reactive, face symmetric, moist mucous membranes NECK: Supple, full range of motion EXTREMITIES: Normal range of motion, no clubbing or edema. Neurovascularly intact. Patient has a linear laceration over the distal ulnar side of the thumb. No subcutaneous tissue exposed. Very minimal gap. NEUROLOGICAL: Cranial nerves II through XII grossly intact. Moving all extremities SKIN: Warm, dry, no petechiae, no rashes or lesions. Initial Vital Signs Initial Vital Signs: Vital Signs Temperature 98.4 F 01/18/22 09:00 Pulse Rate 84 01/18/22 09:00 Respiratory Rate 14 01/18/22 09:00 Blood Pressure 157/96 H 01/18/22 09:00 Pulse Oximetry 99 01/18/22 09:00 Procedures Laceration Repair Laceration 1: Time of procedure: 10:35 Site: hand (thumb) Side (If applicable): right Size (cm): 1 Description: linear Depth: simple, single layer Pre-repair: wound explored, irrigated extensively and deep structures intact Skin layer closed with: dermabond Course Orders Ordered: Discontinued Medications Diphtheria/Tetanus/Acell Pertussis (Tet,Diph,Pertuss(Acell),Vac/Pf 0.5 Ml Syringe) 0.5 ml IM .ONCE ONE Stop: 01/18/22 09:08 Last Admin: 01/18/22 09:33 Dose: 0.5 ml Documented by: TONA Vital Signs Vital signs: Vital Signs - 8 hr 01/18/22 09:00 Temperature 98.4 F Pulse Rate 84 Respiratory Rate 14 Blood Pressure 157/96 H Pulse Oximetry 99 MDM - Wound/Laceration MDM Narrative Medical decision making narrative: [age] year old male with unknown tetanus status which was updated the department with a superficial laceration the distal thumb. Amenable to Dermabond. Patient does not require sutures. Wound was cleansed thoroughly in the department. Tetanus updated. Wound care directions given and return precautions discussed. Discharge Plan Departure Patient Disposition: Home Clinical Impression: Laceration of thumb, right Instructions: DI for Laceration Repair-Skin Glue Activity Restrictions/Additional Instructions: Wound Care: Keep wound(s) clean and dry. Wash daily with soap and water only. Do not use over the counter products (alcohol or peroxide)on the wounds unless instructed by a physician. Do not use triple antibiotic ointment or Neosporin on the Dermabond it will cause it to break down. If wound condition worsens (increased/expanding redness, developing fluid blisters, or worsening pain), either contact your doctor for an urgent re-as sessment , or return to the Emergency Department. Return to the Emergency Department for any new or worsening symptoms. Return if fever greater than 100.4 Fahrenheit, increased swelling, increasing pain or worsening symptoms such as increased discharge or spreading redness. Prescriptions: No Action albuterol sulfate 90 mcg/actuation HFA aerosol inhaler 1 puff Inhalation PRN PRN (Reason: Shortness Of Breath) Qty: 8.5 1RF Rx Instructions: PT WILL NEED TO BE SEEN BEFORE NEXT RENEWAL 11/16/21 venlafaxine 150 mg capsule,extended release 24hr 150 mg PO DAILY 0RF methylphenidate HCl 20 mg tablet extended release 20 mg PO DAILY 0RF Pulmicort Flexhaler 180 mcg/actuation aerosol powdr breath activated 1 puff Inhalation DIRECTED 0RF sulfamethoxazole-trimethoprim 800-160 mg tablet 1 tab PO Q12H Qty: 14 0RF hydrocodone-acetaminophen 5-325 mg tablet 1 tab PO Q6H PRN (Reason: pain) Qty: 14 0RF Referrals: Santiago Knowles MD [Primary Care Provider] - Visit Report Forms: Patient Portal/API
[2022-01-18 11:15] VITALS: BP 159/92; PULSE 94; RESP 18; O2SAT 99
== END 2022-01-18 11:16 | disposition home or self-care (01) ==
PROVIDERS: Emergency Provider Emergency Medicine; PCP Internal Medicine
DX: S61.011A Laceration without foreign body of right thumb without damage to nail, initial encounter (principal); W45.8XXA Other foreign body or object entering through skin, initial encounter; Z23 Encounter for immunization
CPT/HCPCS: 12001; 90471; 99283; 90715

== ENCOUNTER 2023-03-06 16:58 | Emergency (ER) | payer OTHER, MEDICAID, SELFPAY ==
[2023-03-06 17:25] VITALS: BP 142/88; PULSE 103; RESP 20; TEMP 36.7; O2SAT 98; BMI 33.3
--- NOTE | 2023-03-06 17:30 | DI.RAD.S_ITS ---
PROCEDURE: XR ANKLE LT MIN 3V INDICATIONS: Fall TECHNIQUE: 3 views of the ankle were acquired. COMPARISON: [facility], CR, XR ANKLE RT MIN 3V, 11/15/2020, 9:54. FINDINGS: Bones: No visible fractures around the ankle mortise. There are wispy calcifications which may be cortical avulsion fragments, but curvilinear, overlying the talonavicular articulation seen on the lateral view. Bone alignment remains normal. Soft tissues: No tibiotalar joint effusion. Achilles tendon appears normal. There is mild dorsal soft tissue swelling in the area of wispy calcification. IMPRESSION: 1. Mild swelling and possible cortical avulsions along the dorsal hindfoot at the talonavicular articulation. Dictated by: Mitzy Tariq M.D. on 03/06/2023 at 18:15 Approved by: Mitzy Tariq M.D. on 03/06/2023 at 18:17
--- NOTE | 2023-03-06 18:05 | ED.LOWEXIN ---
HPI - Extremity Injury (Lower) <Cameron Simon PA-C - Last Filed: 03/06/23 18:39> General Chief Complaint: Extremity Injury, Lower Stated Complaint: lt ankle injury Time Seen by Provider: 03/06/23 18:05 Source: patient Mode of arrival: Ambulatory History of Present Illness HPI Narrative: This is a 27-year-old male presents emergency department due to ankle pain after missing a step and twisted his left ankle and having a ladder fall on it. History of previously broken ankle at the similar area. Patient denies any numbness to the distal toes. He reports increased pain with range of motion but still able to move about the ankle. No breaks in the skin or bleeding. Related Data Home Medications Medication Instructions Recorded Confirmed budesonide 180 mcg/actuation 1 puff inhalation DIRECTED 12/01/18 01/26/22 breath activated powder inhaler methylphenidate HCl 20 mg 20 mg PO DAILY 12/01/18 01/26/22 tablet,extended release venlafaxine 150 mg 150 mg PO DAILY 12/01/18 01/26/22 capsule,extended release 24 hr sertraline 100 mg tablet 150 mg PO DAILY 01/26/22 01/26/22 Previous Rx's Medication Instructions Recorded hydrocodone 5 mg-acetaminophen 325 1 tab PO Q6H PRN pain #14 tabs 11/15/ mg tablet albuterol sulfate 90 mcg/actuation 1 puff inhalation PRN PRN 11/16/21 aerosol inhaler Shortness Of Breath #8.5 grams Allergies Allergy/AdvReac Type Severity Reaction Status Date / Time peanut Allergy Mild Verified 03/06/23 17:29 shellfish derived Allergy Mild SHRIMP-THROAT Verified 03/06/23 17:29 ITCHY Review of Systems <Cameron Simon PA-C - Last Filed: 03/06/23 18:39> Review of Systems Narrative: GENERAL: Denies chills, fatigue, malaise, fever, sweats. HEENT: Denies sinus pain, ear pain, sore throat, difficulty swallowing, dizziness. RESPIRATORY: Denies dyspnea, cough, wheezing, hemoptysis, sputum. CARDIOVASCULAR: Denies chest pain, palpitations, orthopnea, edema, GASTROINTESTINAL: Denies nausea, vomiting, abdominal pain, diarrhea, constipation, melena. : Denies dysuria, frequency, incontinence, hematuria, urinary retention. MUSCULOSKELETAL: Reports left ankle pain SKIN: Denies rash, skin lesions, or other NEUROLOGIC: Denies weakness, headache, numbness, change in speech, confusion, seizures, incoordination. PSYCHIATRIC: No concerning psychosocial issues. 12 point review of systems is negative except for those stated above Patient History <Cameron Simon PA-C - Last Filed: 03/06/23 18:39> Medical History (Updated 03/06/23 @ 18:38 by Cameron Simon PA-C) No active medical problems Surgical History No pertinent past surgical history Social History Smoking Status: Never smoker Smoking Status: Never smoker alcohol intake frequency: 0-2 drinks per day Substance Use Type: marijuana Exam <Cameron Simon PA-C - Last Filed: 03/06/23 18:39> Narrative Exam Narrative: GENERAL: Well-developed patient, in mild distress. HEAD: Atraumatic. Normocephalic. EYES: Pupils equal round and reactive. Extraocular motions intact. No scleral icterus. No injection or drainage. ENT: Nose without bleeding, purulent drainage. Throat without erythema, tonsillar hypertrophy or exudate. Airway patent. NECK: Trachea midline. Non tender EXTREMITIES: Tenderness to palpation to the left lateral malleolus as well as dorsal aspect of the foot. Neurovascularly intact throughout. No breaks in the skin. BACK: Nontender without deformity or crepitance. No flank tenderness. NEURO: AOx3. SKIN: No rash or erythema of visible areas Initial Vital Signs Initial Vital Signs: Vital Signs Temperature 98.1 F 03/06/23 17:25 Pulse Rate 103 H 03/06/23 17:25 Respiratory Rate 03/06/23 17:25 Blood Pressure 142/88 H 03/06/23 17:25 Pulse Oximetry 98 03/06/23 17:25 Oxygen Delivery Method Room Air 03/06/23 17:25 <Renate Le DO - Last Filed: 03/06/23 19:52> Initial Vital Signs Initial Vital Signs: Vital Signs Temperature 98.1 F 03/06/23 17:25 Pulse Rate 103 H 03/06/23 17:25 Respiratory Rate 03/06/23 17:25 Blood Pressure 142/88 H 03/06/23 17:25 Pulse Oximetry 98 03/06/23 17:25 Oxygen Delivery Method Room Air 03/06/23 17:25 Procedures <Cameron Simon PA-C - Last Filed: 03/06/23 18:39> Orthopedic Splinting/Casting Injury #1: Time of procedure: 18:35 Side: left Lower Extremity Injury Location: foot Lower Extremity Immobilizer: posterior splint Other Orthopedic Equipment: crutches Post splinting neuro exam: intact Post splinting vascular exam: intact Placed by: Nursing Course <Cameron Simon PA-C - Last Filed: 03/06/23 18:39> Orders Ordered: ED Orders 03/06/23 17:30 XR ankle LT min 3V Stat Vital Signs Vital signs: Vital Signs - 8 hr 03/06/23 17:25 03/06/23 19:00 Temperature 98.1 F Pulse Rate 103 H 90 Respiratory Rate 20 16 Blood Pressure 142/88 H 140/80 Pulse Oximetry 98 99 Oxygen Delivery Method Room Air Room Air <Renate Le DO - Last Filed: 03/06/23 19:52> Orders Ordered: ED Orders 03/06/23 17:30 XR ankle LT min 3V Stat Vital Signs Vital signs: Vital Signs - 8 hr 03/06/23 17:25 03/06/23 19:00 Temperature 98.1 F Pulse Rate 103 H 90 Respiratory Rate 20 16 Blood Pressure 142/88 H 140/80 Pulse Oximetry 98 99 Oxygen Delivery Method Room Air Room Air MDM - Extremity Injury (Lower) <Cameron Simon PA-C - Last Filed: 03/06/23 18:39> Imaging Data Extremity x-ray #1: Radiologist's Impression: [address] [address] XRay Report Signed Patient: Jayy Lowery MR#: [id number] : 1995 Acct:[id number] Age/Sex: 27 / M Date of Service: 03/06/23 Loc: ED Accession Number: [id number] ?? Procedure: XR ankle LT min 3V Ordering Provider: Renate Le D.O. PROCEDURE:? XR ANKLE LT MIN 3V ? INDICATIONS:? Fall ? TECHNIQUE:? 3 views of the ankle were acquired.? ? COMPARISON:? [facility], CR, XR ANKLE RT MIN 3V, 11/15/2020, 9:54. ? FINDINGS:? ? Bones:? No visible fractures around the ankle mortise.? There are wispy calcifications which may be cortical avulsion fragments, but curvilinear, overlying the talonavicular articulation seen on the lateral view.? Bone alignment remains normal. ? Soft tissues:? No tibiotalar joint effusion.? Achilles tendon appears normal.? There is mild dorsal soft tissue swelling in the area of wispy calcification. ? ? IMPRESSION:? ? 1. Mild swelling and possible cortical avulsions along the dorsal hindfoot at the talonavicular articulation. ? Dictated by: Mitzy Tariq M.D. on 03/06/2023 at 18:15 ? ? Approved by: Mitzy Tariq M.D. on 03/06/2023 at 18:17 ? MDM Narrative Medical decision making narrative: MDM * differential diagnosis includes but not limited to left ankle sprain, left ankle or foot fracture, soft tissue injury * Prior records reviewed: Patient has not been here for similar complaints in the past * My lab interpretation: None obtained * My imgaing interpretation: Left ankle x-ray negative for fractures. * Clinical Decision Rules/Scores evaluated: None * Independent discussions with: None ED Course: This is a 27-year-old male presenting to the emergency department due to a left ankle injury as well as a ladder falling on his left foot. X-ray was taken which showed ?possible cortical avulsion along the dorsal hindfoot at the talonavicular articulation ?. This was discussed with my attending physician, who recommended splinting and having orthopedic follow up. Splint was applied without complications. Patient will follow up with Orthopedics. Shared Decision Making: Discussed plan with patient who is comfortable with the plan. Social Considerations: None Disposition: Discharged to home Discharge Plan Departure Patient Disposition: Home Clinical Impression: Foot fracture Instructions: DI for Fracture Activity Restrictions/Additional Instructions: Thank you for coming to the [facility] Emergency Department today. On your x-ray it appears that there may be very small avulsion fractures to the top of your foot. Please follow up with Orthopedics and remain nonweightbearing until you are able to follow up with the orthopedist. Please use ibuprofen and Tylenol for the pain. I hope you feel better soon. Prescriptions: No Action albuterol sulfate 90 mcg/actuation HFA aerosol inhaler 1 puff Inhalation PRN PRN (Reason: Shortness Of Breath) Qty: 8.5 1RF Rx Instructions: PT WILL NEED TO BE SEEN BEFORE NEXT RENEWAL 11/16/21 sertraline 100 mg tablet 150 mg PO DAILY venlafaxine 150 mg capsule,extended release 24hr 150 mg PO DAILY methylphenidate HCl 20 mg tablet extended release 20 mg PO DAILY Pulmicort Flexhaler 180 mcg/actuation aerosol powdr breath activated 1 puff Inhalation DIRECTED hydrocodone-acetaminophen 5-325 mg tablet 1 tab PO Q6H PRN (Reason: pain) Qty: 14 0RF Referrals: Santiago Knowles MD [Primary Care Provider] - Kristian Arias MD [Physician] - (Follow up on cortical avulsion fractures along the dorsal hindfoot at the talonavicular articulation) Stand Alone Forms: Patient Portal/API <Renate Le DO - Last Filed: 03/06/23 19:52> Cosign ED Attending Cosignature Attestation: I was immediately available in the department for consultation. Documentation has been reviewed. Case was discussed, plan for splint, weightbearing as tolerated with follow-up with orthopedic surgery.
[2023-03-06 19:00] VITALS: BP 140/80; PULSE 90; RESP 16; O2SAT 99
== END 2023-03-06 19:00 | disposition home or self-care (01) ==
PROVIDERS: Emergency Provider Physician Assistant Medical; PCP Internal Medicine
DX: S92.902A Unspecified fracture of left foot, initial encounter for closed fracture (principal); X50.1XXA Overexertion from prolonged static or awkward postures, initial encounter; W22.8XXA Striking against or struck by other objects, initial encounter
CPT/HCPCS: 29515; 73610; 99283

== ENCOUNTER 2023-04-07 04:43 | Emergency (ER) | payer OTHER, SELFPAY ==
[2023-04-07] VITALS (7 sets, daily range): BP systolic 111–153; BP diastolic 64–99; PULSE 84–115; RESP 18–20; TEMP 37; O2SAT 95–98; BMI 33.3
[2023-04-07 05:31] LABS: Ur Creatinine Normal (Normal); Ur Specific Gravity Normal (Normal); Urine Cocaine Positive (Negative); Urine Tetrahydrocannabinol Positive (Negative); Urine pH Normal (Normal)
[2023-04-07 05:32] LABS: UR Morphine/Opiate cutoff 300 Negative (Negative); Urine Amphetamines Negative (Negative); Urine Barbiturates Negative (Negative); Urine Benzodiazepines Negative (Negative); Urine MDMA Negative (Negative); Urine Methadone Negative (Negative); Urine Methamphetamines Negative (Negative); Urine Oxycodone Negative (Negative); Urine Phencyclidine Negative (Negative); Urine Tricyclic Antidepressant Negative (Negative)
[2023-04-07 05:33] LABS: Add Manual Diff / Slide Review NO; Basophils Absolute Auto 0 /uL (0-100); Basophils Percent Auto 0.7 % (0-2); Eosinophils Absolute Auto 100 /uL (0-450); Eosinophils Percent Auto 3.1 % (2-4); Hemoglobin 14.9 g/dL (13.5-17.5); Lymphocytes Absolute Auto 1400 /uL (1100-4500); Lymphocytes Percent Auto 30.2 % (25-40); Mean Corpuscular HGB Conc 34.7 % (30-36); Mean Corpuscular Hemoglobin 31.6 PG (26-34); Mean Corpuscular Volume 91.1 fL (80-100); Monocytes Absolute Auto 200 /uL (0-900); Monocytes Percent Auto 4.7 % (3-14); Neutrophils Absolute Auto 2800 /uL (1500-7000); Neutrophils Percent Auto 61.3 % (50-75); Platelet Count 233 X10^3/uL (150-400); Red Blood Cell Count 4.72 X10^6/uL (4.5-5.9); Red Cell Distribution Width 12.8 % (11.6-14.8); White Blood Cell Count 4.6 X10^3/uL (4.5-11.0)
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
[2023-04-07 05:47] LABS: Alanine Aminotransferase 25 IU/L (<50); Albumin 4.9 g/dL (3.5-5.0); Albumin Globulin Ratio 1.5 (1.0-2.8); Alkaline Phosphatase 57 U/L (38-126); Aspartate Aminotransferase 31 IU/L (17-59); BUN Creatinine Ratio 7.9 (6-22); Bilirubin Total 0.4 mg/dL (0.2-1.3); Blood Urea Nitrogen 7 mg/dL (9-20); Calcium 8.8 mg/dL (8.4-10.2); Carbon Dioxide 26 mmol/L (22-32); Chloride 107 mmol/L (98-107); Estimated Glomerular Filt Rate > 60 mL/min (>60); Ethanol (ETOH) 295 mg/dL; Globulin 3.3 g/dL (1.7-4.1); Glucose 104 mg/dL (70-100); HEMOLYSIS < 15 (0-50); Potassium 3.4 mmol/L (3.4-5.1); Sodium 146 mmol/L (137-145); Total Protein 8.2 g/dL (6.3-8.2)
--- NOTE | 2023-04-07 07:14 | PC.NURSE ---
Pt belongings in secure cabinet behind nurses station
--- NOTE | 2023-04-07 07:57 | PC.NURSE ---
This [employer] HANGER introduced self to pt and provided breakfast. pt went back to sleep. breakfast on table beside bed in safety container.
[2023-04-07] MEDS: ACETAMINOPHEN 325 MG TABLET 975 MG PO (08:20)
[2023-04-07 08:50] LABS: Ethanol (ETOH) 241 mg/dL
--- NOTE | 2023-04-07 09:00 | PC.NURSE ---
RN spoke with [facility] intake. [facility] has beds and requested packet to review. Packed faxed. Waiting for call back.
[2023-04-07 09:15] LABS: Thyroid Stimulating Hormone 1.84 uIU/mL (0.47-4.68)
[2023-04-07 09:24] LABS: COVID19 -Nasal RAPID Negative (Negative)
[2023-04-07] MEDS: KETOROLAC 30 MG/ML VIAL 15 MG IV (13:43)
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
[2023-04-07] MEDS: LORazepam 2 MG/ML INJ 1 MG IV ×2 (16:51→17:37)
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
== END 2023-04-07 20:45 ==
PROVIDERS: Emergency Medicine; Emergency Provider Emergency Medicine; PCP Internal Medicine
DX: R45.851 Suicidal ideations (principal); F32.A Depression, unspecified; Z20.822 Contact with and (suspected) exposure to COVID-19
CPT/HCPCS: 36415; 70450; 71260; 72125; 74177; 80053; 80305; 80320; 81003; 84443; 85025; 87635; 93005; 96374; 96375; 96376; 99285; C9803; J1885; J2060; Q9967

== ENCOUNTER 2023-06-17 23:33 | Emergency (ER) | payer OTHER, MEDICAID, SELFPAY ==
[2023-06-17 23:38] VITALS: O2SAT 99
[2023-06-17 23:41] VITALS: BP 171/104; PULSE 96; RESP 20; TEMP 36.9; O2SAT 99; BMI 33.3
--- NOTE | 2023-06-17 23:50 | DI.RAD.S_ITS ---
PROCEDURE: XR CHEST 1V INDICATIONS: cough/asthma/chest pain TECHNIQUE: One view of the chest was acquired. COMPARISON: [facility], CT, CT CHEST ABD PEL W CON, 04/07/2023, 5:48. [facility], CR, CHEST 2 VIEW, 12/14/2016, 5:13. FINDINGS: Surgical changes and devices: None. Lungs and pleura: Bilateral lower lobe infiltrates suspicious for pneumonia. No pleural effusions or pneumothorax. Mediastinum: Mediastinal contours appear normal. Heart size is normal. Bones and chest wall: No suspicious bony lesions. Overlying soft tissues appear unremarkable. IMPRESSION: Bilateral lower lobe infiltrates suspicious for pneumonia. Dictated by: Nidia Cortez M.D. on 06/18/2023 at 0:08 Approved by: Nidia Cortez M.D. on 06/18/2023 at 0:10
[2023-06-17] MEDS: ALBUTEROL HFA PREPACK 1 BOX MISC (23:55)
--- NOTE | 2023-06-17 23:58 | PC.NURSE ---
Patient states he does not want to talk to social work.
[2023-06-18] VITALS: PULSE 96; O2SAT 98
--- NOTE | 2023-06-18 00:08 | ED_ITS ---
HPI - SOB/Dyspnea General Chief Complaint: Shortness of Breath/Dyspnea Stated Complaint: SOB Time Seen by Provider: 06/17/23 23:50 Source: patient and EMS Mode of arrival: EMS History of Present Illness HPI Narrative: Patient is a 28-year-old male history of asthma presenting today with shortness of breath. He reports that he ran out of his inhaler he is had increasing difficulty breathing throughout the day. No fever or chills. But does feel like he has a productive cough. Received nebulizer with EMS in his overall feeling better. He tried to call his primary care for in inhaler but was not successful. Related Data Home Medications Medication Instructions Recorded Confirmed budesonide 180 mcg/actuation 1 puff inhalation DIRECTED 12/01/18 01/26/22 breath activated powder inhaler methylphenidate HCl 20 mg 20 mg PO DAILY 12/01/18 01/26/22 tablet,extended release venlafaxine 150 mg 150 mg PO DAILY 12/01/18 01/26/22 capsule,extended release 24 hr sertraline 100 mg tablet 150 mg PO DAILY 01/26/22 01/26/22 Previous Rx's Medication Instructions Recorded hydrocodone 5 mg-acetaminophen 325 1 tab PO Q6H PRN pain #14 tabs 11/15/20 mg tablet albuterol sulfate 90 mcg/actuation 1 puff inhalation PRN PRN 11/16/21 aerosol inhaler Shortness Of Breath #8.5 grams hydrocodone 5 mg-acetaminophen 325 1 tab PO Q8H PRN pain #14 tabs 03/07/23 mg tablet amoxicillin 500 mg capsule 1,000 mg (2 x 500 mg) PO TID 5 06/18/23 days #30 caps azithromycin 250 mg tablet See Rx Instructions PO .COMPLEX #6 06/18/23 tabs Allergies Allergy/AdvReac Type Severity Reaction Status Date / Time peanut Allergy Mild Itchy Verified 06/17/23 23:56 throat shellfish derived Allergy Mild SHRIMP-THROAT Verified 06/17/23 23:57 ITCHY Patient History Medical History (Updated 06/18/23 @ 00:20 by Abi Dinero DO) No active medical problems Surgical History No pertinent past surgical history Social History Smoking Status: Current some day smoker Smoking Status: Current some day smoker alcohol intake frequency: 0-2 drinks per day Substance Use Type: marijuana Exam Initial Vital Signs Initial Vital Signs: Vital Signs Pulse Oximetry 99 06/17/23 23:38 GENERAL: Alert well-appearing 28-year-old and in no acute distress. HEENT: Head atraumatic,EOMI, pupils reactive, face symmetric, moist mucous membranes CARDIOVASCULAR: Regular rate and rhythm without murmurs, rubs or gallops. RESPIRATORY: Breath sounds equal bilaterally, no wheezes rales or rhonchi. Speaks in full sentences ABDOMEN: Soft, nontender. Normoactive bowel sounds all 4 quadrants. No guarding or rebound. EXTREMITIES: Normal range of motion, no clubbing or edema. Neurovascularly intact NEUROLOGICAL: Alert and oriented x4. SKIN: Warm, dry, no laceration, no petechiae, no rashes or lesions. Course Orders Ordered: ED Orders 06/17/23 23:49 Consult to [employer] - [employer] Professor Stat 06/17/23 23:50 XR chest 1V Stat EKG-12 Lead Stat Discontinued Medications Albuterol (Albuterol Hfa Prepack) 1 box MISC SEEINSTR ONE Stop: 06/17/23 23:51 Last Admin: 06/17/23 23:55 Dose: 1 box Documented By: SHARON Vital Signs Vital signs: Vital Signs - 8 hr 06/17/23 23:38 06/17/23 23:41 06/18/23 00:00 Temperature 98.5 F Pulse Rate 96 H 96 H Respiratory Rate 20 Blood Pressure 171/104 H Pulse Oximetry 99 99 98 Oxygen Delivery Method Room Air Room Air 06/18/23 00:38 Temperature Pulse Rate 89 Respiratory Rate Blood Pressure 162/88 H Pulse Oximetry 98 Oxygen Delivery Method Room Air MDM - SOB/Dyspnea Imaging Data Chest x-ray: Radiologist's Impression: PROCEDURE: XR CHEST 1V INDICATIONS: cough/asthma/chest pain TECHNIQUE: One view of the chest was acquired. COMPARISON: [facility], CT, CT CHEST ABD PEL W CON, 04/07/2023, 5:48. [facility], CR, CHEST 2 VIEW, 12/14/2016, 5:13. FINDINGS: Surgical changes and devices: None. Lungs and pleura: Bilateral lower lobe infiltrates suspicious for pneumonia. No pleural effusions or pneumothorax. Mediastinum: Mediastinal contours appear normal. Heart size is normal. Bones and chest wall: No suspicious bony lesions. Overlying soft tissues appear unremarkable. IMPRESSION: Bilateral lower lobe infiltrates suspicious for pneumonia. Dictated by: Nidia Cortez M.D. on 06/18/2023 at 0:08 Approved by: Nidia Cortez M.D. on 06/18/2023 at 0:10 ECG Data Interpretation: Normal sinus rhythm rate 89 LA interval 152 QRS [address] changes or T- wave inversion MDM Narrative Medical decision making narrative: Patient 28-year-old male history of asthma presenting today with increasing shortness of breath. He received albuterol prior to arrival reports that he is feeling better but still having some chest pain. X-ray does show bilateral lobe infiltrates. Although questionable clinically correlates. Lungs are very clear no evidence of wheezing or asthma at this time although he was treated before arrival. No fever chills he does report productive cough. He does not have abnormal vitals here no evidence of sepsis he overall appears well. Reports starting having shortness of breath earlier today. At this time I see no need for any further workup will treat him for community-acquired pneumonia outpatient. EKG does not show any arrhythmia or ST elevation. Discharge Plan Departure Patient Disposition: Home Clinical Impression: Asthma with exacerbation, Pneumonia Instructions: Atypical Pneumonia, DI for Asthma -- Adult Activity Restrictions/Additional Instructions: *You have been diagnosed with asthma exacerbation, very mild pneumonia on x-ray *What to do: At this time her lungs are clear your x-ray is negative. Use inhaler as needed *Continue to take medications as directed Albuterol 1-2 puffs every 4 hours if needed for shortness of breath Amoxicillin 1000 mg 3 times a day for 5 days Azithromycin take as directed for 5 days *Follow up with your primary care provider in 2-3 days or call [phone] *Return to ER if you should have increasing fever chest pain shortness of or any new, worsening or concerning symptoms Prescriptions: New amoxicillin 500 mg capsule 1,000 mg PO TID 5 Days Qty: 30 0RF azithromycin 250 mg tablet See Rx Instructions PO .COMPLEX Qty: 6 0RF Rx Instructions: For 250 mg dose pack: take 500 mg today (day 1), then 250 mg for 4 days (days 2-5) No Action albuterol sulfate 90 mcg/actuation HFA aerosol inhaler 1 puff Inhalation PRN PRN (Reason: Shortness Of Breath) Qty: 8.5 1RF Rx Instructions: PT WILL NEED TO BE SEEN BEFORE NEXT RENEWAL 11/16/21 sertraline 100 mg tablet 150 mg PO DAILY venlafaxine 150 mg capsule,extended release 24hr 150 mg PO DAILY methylphenidate HCl 20 mg tablet extended release 20 mg PO DAILY Pulmicort Flexhaler 180 mcg/actuation aerosol powdr breath activated 1 puff Inhalation DIRECTED hydrocodone-acetaminophen 5-325 mg tablet 1 tab PO Q6H PRN (Reason: pain) Qty: 14 0RF hydrocodone-acetaminophen 5-325 mg tablet 1 tab PO Q8H PRN (Reason: pain) Qty: 14 0RF Referrals: Santiago Knowles MD [Primary Care Provider] - Stand Alone Forms: Patient Portal/API
[2023-06-18 00:38] VITALS: BP 162/88; PULSE 89; O2SAT 98
== END 2023-06-18 00:35 | disposition home or self-care (01) ==
PROVIDERS: Emergency Provider Emergency Medicine; PCP Internal Medicine
DX: J45.901 Unspecified asthma with (acute) exacerbation (principal); J18.9 Pneumonia, unspecified organism; R07.9 Chest pain, unspecified
CPT/HCPCS: 71045; 93005; 99281; 99283

== ENCOUNTER 2023-07-28 00:57 | Emergency (ER) | payer OTHER, MEDICAID, SELFPAY ==
[2023-07-28 01:05] VITALS: BP 161/107; PULSE 133; RESP 18; TEMP 37.1; O2SAT 99; BMI 35.3
--- NOTE | 2023-07-28 01:27 | ED.PSYCH ---
HPI - Psych General Chief Complaint: Psychiatric Symptoms Stated Complaint: contemplating suicide/needs antidepressants Time Seen by Provider: 07/28/23 01:04 Source: patient Mode of arrival: Ambulatory History of Present Illness HPI Narrative: 28-year-old male with history of depression and anxiety presents requesting a refill of his psychiatric medications. Patient was admitted to [facility] in March for suicidal ideation. He was discharged on several psychiatric medications, he states that he ran out approximately 3 weeks ago and his primary care physician we will not refill his medications unless he makes an appointment. He has an appointment scheduled for August 08, but he is noticed worsening depression and requests a refill before he can make it to his appointment. He states that he does not want to , but doesn't know what else to do. Related Data Home Medications Medication Instructions Recorded Confirmed budesonide 180 mcg/actuation 1 puff inhalation DIRECTED 12/01/18 01/26/22 breath activated powder inhaler methylphenidate HCl 20 mg 20 mg PO DAILY 12/01/18 01/26/22 tablet,extended release venlafaxine 150 mg 150 mg PO DAILY 12/01/18 01/26/22 capsule,extended release 24 hr sertraline 100 mg tablet 150 mg PO DAILY 01/26/22 01/26/22 Previous Rx's Medication Instructions Recorded hydrocodone 5 mg-acetaminophen 325 1 tab PO Q6H PRN pain #14 tabs 11/15/ mg tablet albuterol sulfate 90 mcg/actuation 1 puff inhalation PRN PRN 11/16/21 aerosol inhaler Shortness Of Breath #8.5 grams hydrocodone 5 mg-acetaminophen 325 1 tab PO Q8H PRN pain #14 tabs 03/07/23 mg tablet azithromycin 250 mg tablet See Rx Instructions PO .COMPLEX #6 06/18/23 tabs hydroxyzine HCl 50 mg tablet 50 mg PO TID PRN anxiety #30 tabs 07/28/23 hydroxyzine pamoate 50 mg capsule 50 mg PO TID PRN anxiety #30 caps 07/28/23 methylphenidate HCl 20 mg 20 mg PO DAILY #14 caps 07/28/23 capsule,extended release (40-60) sprinkle methylphenidate HCl 20 mg 20 mg PO QAM #14 caps 07/28/23 capsule,extended release (40-60) sprinkle sertraline 100 mg tablet 100 mg PO DAILY #14 tabs 07/28/23 sertraline 100 mg tablet 100 mg PO DAILY #14 tabs 07/28/23 venlafaxine 150 mg 150 mg PO DAILY #14 caps 07/28/23 capsule,extended release 24 hr venlafaxine 150 mg 150 mg PO DAILY #14 caps 07/28/23 capsule,extended release 24 hr Allergies Allergy/AdvReac Type Severity Reaction Status Date / Time peanut Allergy Mild Itchy Verified 06/17/23 23:56 throat shellfish derived Allergy Mild SHRIMP-THROAT Verified 06/17/23 23:57 ITCHY Review of Systems Review of Systems Narrative: Negative except as noted above Patient History Medical History No active medical problems Surgical History No pertinent past surgical history Social History Smoking Status: Current some day smoker Smoking Status: Current some day smoker alcohol intake frequency: 0-2 drinks per day Substance Use Type: marijuana Exam Initial Vital Signs Initial Vital Signs: Vital Signs Temperature 98.7 F 07/28/23 01:05 Pulse Rate 133 H 07/28/23 01:05 Respiratory Rate 18 07/28/23 01:05 Blood Pressure 161/107 H 07/28/23 01:05 Pulse Oximetry 99 07/28/23 01:05 Oxygen Delivery Method Room Air 07/28/23 01:05 Const: Awake, alert, no acute distress RESP: unlabored, clear bilaterally, no wheezing MSK: Atraumatic, full range of motion, pulses equal Skin: Warm, Dry, intact, no rashes Neuro: AO x3, CN II-XII grossly intact, moves all extremities Psych: hygiene poor, depressed mood, congruent affect Course Course Course Narrative: Patient presenting for worsening depression and anxiety after missing his medications for the last 3 weeks. He states he does not want to kill himself but is progressively getting more depressed the longer he is off his medications and his primary care doctor's appointment is not for another 11 days. He believes that he will feel better if he gets back on his medications. Record review shows that patient was previously on hydroxyzine, methylphenidate, sertraline, venlafaxine. A 2 week prescription was sent to the patient's pharmacy of choice. His 1st dose was given in the emergency department prior to discharge. Safety plan in place Orders Ordered: Discontinued Medications Hydroxyzine Pamoate (Hydroxyzine Pamoate 25 Mg Capsule) 50 mg PO NOW ONE Stop: 07/28/23 01:50 Last Admin: 07/28/23 02:07 Dose: 50 mg Sertraline HCl (Sertraline 50 Mg Tablet) 100 mg PO BEDTIME ANTONELLA Sertraline HCl (Sertraline 50 Mg Tablet) 100 mg PO NOW ONE Stop: 07/28/23 01:50 Last Admin: 07/28/23 02:08 Dose: 100 mg Venlafaxine HCl (Venlafaxine Er 75 Mg Cap) 150 mg PO DAILY ANTONELLA Venlafaxine HCl (Venlafaxine Er 75 Mg Cap) 150 mg PO NOW ONE Stop: 07/28/23 01:50 Last Admin: 07/28/23 02:08 Dose: 150 mg Vital Signs Vital signs: Vital Signs - 8 hr 07/28/23 01:05 07/28/23 02:24 Temperature 98.7 F 98.7 F Pulse Rate 133 H 118 H Respiratory Rate 18 20 Blood Pressure 161/107 H 139/94 H Pulse Oximetry 99 94 Oxygen Delivery Method Room Air Room Air MDM - Psych Differential Diagnosis Differential diagnosis: Likely suicidal ideation, depression and acute anxiety Discharge Plan Departure Patient Disposition: Home Clinical Impression: Medication refill, Depression Instructions: Depression Prescriptions: New hydroxyzine HCl 50 mg tablet 50 mg PO TID PRN (Reason: anxiety) Qty: 30 0RF methylphenidate HCl 20 mg cap,ER sprinkle,biphasic 40-60 20 mg PO DAILY Qty: 14 0RF sertraline 100 mg tablet 100 mg PO DAILY Qty: 14 0RF venlafaxine 150 mg capsule,extended release 24hr 150 mg PO DAILY Qty: 14 0RF hydroxyzine pamoate 50 mg capsule 50 mg PO TID PRN (Reason: anxiety) Qty: 30 0RF methylphenidate HCl 20 mg cap,ER sprinkle,biphasic 40-60 20 mg PO QAM Qty: 14 0RF sertraline 100 mg tablet 100 mg PO DAILY Qty: 14 0RF venlafaxine 150 mg capsule,extended release 24hr 150 mg PO DAILY Qty: 14 0RF No Action albuterol sulfate 90 mcg/actuation HFA aerosol inhaler 1 puff Inhalation PRN PRN (Reason: Shortness Of Breath) Qty: 8.5 1RF Rx Instructions: PT WILL NEED TO BE SEEN BEFORE NEXT RENEWAL 11/16/21 sertraline 100 mg tablet 150 mg PO DAILY azithromycin 250 mg tablet See Rx Instructions PO .COMPLEX Qty: 6 0RF Rx Instructions: For 250 mg dose pack: take 500 mg today (day 1), then 250 mg for 4 days (days 2-5) venlafaxine 150 mg capsule,extended release 24hr 150 mg PO DAILY methylphenidate HCl 20 mg tablet extended release 20 mg PO DAILY Pulmicort Flexhaler 180 mcg/actuation aerosol powdr breath activated 1 puff Inhalation DIRECTED hydrocodone-acetaminophen 5-325 mg tablet 1 tab PO Q6H PRN (Reason: pain) Qty: 14 0RF hydrocodone-acetaminophen 5-325 mg tablet 1 tab PO Q8H PRN (Reason: pain) Qty: 14 0RF Referrals: Santiago Knolwes MD [Primary Care Provider] - Stand Alone Forms: Patient Portal/API
[2023-07-28] MEDS: hydrOXYzine pamoate 25 MG CAPSULE 50 MG PO (02:07)
[2023-07-28] MEDS: VENLAFAXINE ER 75 MG CAP 150 MG PO (02:08)
[2023-07-28] MEDS: SERTRALINE 50 MG TABLET 100 MG PO (02:08)
[2023-07-28] MEDS: METHYLPHENIDATE 5 MG TABLET 10 MG PO (02:09)
[2023-07-28 02:24] VITALS: BP 139/94; PULSE 118; RESP 20; TEMP 37.1; O2SAT 94
== END 2023-07-28 02:20 | disposition home or self-care (01) ==
PROVIDERS: Emergency Provider Emergency Medicine; PCP Internal Medicine
DX: F32.A Depression, unspecified (principal); Z76.0 Encounter for issue of repeat prescription
CPT/HCPCS: 99283

== ENCOUNTER 2024-02-11 13:43 | Emergency (ER) | payer OTHER, MEDICAID, SELFPAY ==
[2024-02-11 13:51] VITALS: BP 172/105; PULSE 87; RESP 18; TEMP 36.6; O2SAT 98; BMI 33.3
--- NOTE | 2024-02-11 13:58 | EKG_ITS ---
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
[2024-02-11 15:24] VITALS: BP 176/91; PULSE 73; RESP 18; O2SAT 98
--- NOTE | 2024-02-11 15:25 | ED_ITS ---
HPI - SOB/Dyspnea <Live Medrano PA-C - Last Filed: 02/11/24 15:30> General Chief Complaint: Shortness of Breath/Dyspnea Stated Complaint: asthma, rt side of chest hurts when breathes in Time Seen by Provider: 02/11/24 15:00 Source: patient Mode of arrival: Ambulatory History of Present Illness HPI Narrative: 28-year-old male with past medical history asthma, seasonal allergies presents to the ED requesting a prescription for an albuterol inhaler. Patient states that during this time of the year his asthma is frequently exacerbated due to seasonal allergens. Patient does take Zyrtec for his allergies. Patient states that he has recently been wheezing due to the pollen in the air, ran out of his albuterol inhaler yesterday. Patient called his PCP who is unable to see him for several weeks, therefore patient came into the ED for a prescription. Patient complains of wheezing, trouble breathing when exposed to pollen. Patient is not currently wheezing in the ED. patient denies chest pain, fever, cough. Patient states that he has muscular pain in his right chest from lifting something wrong. Related Data Home Medications Medication Instructions Recorded Confirmed budesonide 180 mcg/actuation 1 puff inhalation DIRECTED 12/01/18 01/26/22 breath activated powder inhaler methylphenidate HCl 20 mg 20 mg PO DAILY 12/01/18 01/26/22 tablet,extended release venlafaxine 150 mg 150 mg PO DAILY 12/01/18 01/26/22 capsule,extended release 24 hr sertraline 100 mg tablet 150 mg PO DAILY 01/26/22 01/26/22 Previous Rx's Medication Instructions Recorded hydrocodone 5 mg-acetaminophen 325 1 tab PO Q6H PRN pain #14 tabs 11/15/20 mg tablet albuterol sulfate 90 mcg/actuation 1 puff inhalation PRN PRN 11/16/21 aerosol inhaler Shortness Of Breath #8.5 grams hydrocodone 5 mg-acetaminophen 325 1 tab PO Q8H PRN pain #14 tabs 03/07/23 mg tablet azithromycin 250 mg tablet See Rx Instructions PO .COMPLEX #6 06/18/23 tabs hydroxyzine HCl 50 mg tablet 50 mg PO TID PRN anxiety #30 tabs 07/28/23 hydroxyzine pamoate 50 mg capsule 50 mg PO TID PRN anxiety #30 caps 07/28/23 methylphenidate HCl 20 mg 20 mg PO DAILY #14 caps 07/28/23 capsule,extended release (40-60) sprinkle methylphenidate HCl 20 mg 20 mg PO QAM #14 caps 07/28/23 capsule,extended release (40-60) sprinkle sertraline 100 mg tablet 100 mg PO DAILY #14 tabs 07/28/23 sertraline 100 mg tablet 100 mg PO DAILY #14 tabs 07/28/23 venlafaxine 150 mg 150 mg PO DAILY #14 caps 07/28/23 capsule,extended release 24 hr venlafaxine 150 mg 150 mg PO DAILY #14 caps 07/28/23 capsule,extended release 24 hr albuterol sulfate 90 mcg/actuation 2 puff inhalation Q6H PRN 02/11/24 aerosol inhaler shortness of breath or wheezing #6.7 grams Allergies Allergy/AdvReac Type Severity Reaction Status Date / Time peanut Allergy Mild Itchy Verified 06/17/23 23:56 throat shellfish derived Allergy Mild SHRIMP-THROAT Verified 06/17/23 23:57 ITCHY Review of Systems <Live Medrano PA-C - Last Filed: 02/11/24 15:30> Constitutional Constitutional: Denies chills, Denies fatigue, Denies fever(s), Denies frequent falls, Denies lethargy and Denies weakness Eyes Eyes: Denies change in vision, Denies eye discharge, Denies irritation and Denies loss of vision ENT Ears, Nose, Mouth, and Throat: Denies change in voice, Denies dizziness, Denies neck pain, Denies sore throat and Denies throat swelling Cardiovascular Cardiovascular: Denies chest pain, Denies irregular heart rhythm, Denies lightheadedness, Denies palpitations, Reports dyspnea, Denies dyspnea on exertion and Denies orthopnea Respiratory Respiratory: Denies cough, Reports dyspnea, Denies dyspnea on exertion and Reports wheezing Gastrointestinal Gastrointestinal: Denies abdominal pain, Denies change in bowel habits, Denies diarrhea, Denies nausea and Denies vomiting Musculoskeletal Musculoskeletal: Denies neck pain and Denies numbness Integumentary/Breasts Skin/Breast: Denies pruritus, Denies erythema, Denies rash and Denies wounds Neurologic Neurologic: Denies behavioral changes, Denies confusion, Denies dizziness, Denies frequent falls, Denies loss of vision, Denies numbness and Denies weakness Psychiatric Psychiatric: Denies anxiety, Denies behavioral changes, Denies confusion, Denies depression, Denies homicidal ideation and Denies suicidal ideation Endocrine Endocrine: Denies fatigue, Denies flushing and Denies palpitations Hematologic/Lymphatic Hematologic/Lymphatic: Denies easy bruising Allergic/Immunologic Allergic/Immunologic: Denies urticaria, Denies throat swelling and Reports wheezing Patient History <Live Medrano PA-C - Last Filed: 02/11/24 15:30> Medical History (Updated 02/11/24 @ 15:24 by Live Medrano PA-C) No active medical problems Surgical History No pertinent past surgical history Social History Smoking Status: Current some day smoker Smoking Status: Current some day smoker alcohol intake frequency: 0-2 drinks per day Substance Use Type: marijuana Exam <Live Medrano PA-C - Last Filed: 02/11/24 15:30> Narrative Exam Narrative: Const General:?cooperative, healthy appearing and comfortable [facility] Head:?normal to inspection Ears:?hearing grossly normal bilaterally Nose:?external nose normal Face and sinus:?normal facial exam and sinuses nontender Mouth:?oral mucosae normal Throat:?posterior oropharynx normal Eyes General:?appearance normal, both eyes and all related structures Neck Neck:?normal visual inspection and no lymphadenopathy noted Resp Effort & Inspection:?normal respiratory effort Auscultation:?clear to auscultation bilaterally Cardio Rate:?regular rate Rhythm:?regular rhythm Neuro General:?patient alert, patient awake and patient oriented x3 Initial Vital Signs Initial Vital Signs: Vital Signs Temperature 98 F 02/11/24 13:51 Pulse Rate 87 02/11/24 13:51 Respiratory Rate 18 02/11/24 13:51 Blood Pressure 172/105 H 02/11/24 13:51 Pulse Oximetry 98 02/11/24 13:51 Oxygen Delivery Method Room Air 02/11/24 13:51 <Abi Dinero DO - Last Filed: 02/12/24 08:46> Initial Vital Signs Initial Vital Signs: Vital Signs Temperature 98 F 02/11/24 13:51 Pulse Rate 87 02/11/24 13:51 Respiratory Rate 18 02/11/24 13:51 Blood Pressure 172/105 H 02/11/24 13:51 Pulse Oximetry 98 02/11/24 13:51 Oxygen Delivery Method Room Air 02/11/24 13:51 Course <Live Medrano PA-C - Last Filed: 02/11/24 15:30> Orders Ordered: ED Orders 02/11/24 13:54 EKG-12 Lead Stat 02/11/24 14:34 RT Consult Eval and Treat NOW Vital Signs Vital signs: Vital Signs - 8 hr 02/11/24 13:51 02/11/24 15:24 Temperature 98 F Pulse Rate 87 73 Respiratory Rate 18 18 Blood Pressure 172/105 H 176/91 H Pulse Oximetry 98 98 Oxygen Delivery Method Room Air Room Air <Abi Dinero DO - Last Filed: 02/12/24 08:46> Orders Ordered: ED Orders 02/11/24 13:54 EKG-12 Lead Stat 02/11/24 14:34 RT Consult Eval and Treat NOW Vital Signs Vital signs: Vital Signs - 8 hr 02/11/24 13:51 02/11/24 15:24 Temperature 98 F Pulse Rate 87 73 Respiratory Rate 18 18 Blood Pressure 172/105 H 176/91 H Pulse Oximetry 98 98 Oxygen Delivery Method Room Air Room Air MDM - SOB/Dyspnea <Live Medrano PA-C - Last Filed: 02/11/24 15:30> MDM Narrative Medical decision making narrative: 28-year-old male with past medical history asthma, seasonal allergies presents to the ED requesting a prescription for an albuterol inhaler. Lungs are bilaterally clear to auscultation in the ED. the chest pain on the right side appears to be muscular in nature, unlikely PE. Prescribed albuterol inhaler. Recommend follow-up with PCP for further evaluation and maintenance medications for the asthma. ED return precautions were discussed with patient. Patient verbalized understanding. Medical records reviewed: Yes Discharge Plan Departure Patient Disposition: Home Clinical Impression: Asthma with exacerbation Qualifiers: Asthma severity: mild Asthma persistence: unspecified Qualified Code(s): J45.901 - Unspecified asthma with (acute) exacerbation Activity Restrictions/Additional Instructions: You were evaluated in the ED today for an asthma exacerbation. In the ED your breathing appears to be normal and you were not wheezing. However, you are being prescribed an albuterol inhaler for use when your asthma is exacerbated and you were wheezing. Please follow-up with your PCP for further evaluation and maintenance medications for your asthma. Return to the ED if you have worsening symptoms, chest pain, shortness of breath. Prescriptions: New albuterol sulfate 90 mcg/actuation HFA aerosol inhaler 2 puff inhalation Q6H PRN (Reason: shortness of breath or wheezing) Qty: 6.7 3RF No Action albuterol sulfate 90 mcg/actuation HFA aerosol inhaler 1 puff Inhalation PRN PRN (Reason: Shortness Of Breath) Qty: 8.5 1RF Rx Instructions: PT WILL NEED TO BE SEEN BEFORE NEXT RENEWAL 11/16/21 sertraline 100 mg tablet 150 mg PO DAILY azithromycin 250 mg tablet See Rx Instructions PO .COMPLEX Qty: 6 0RF Rx Instructions: For 250 mg dose pack: take 500 mg today (day 1), then 250 mg for 4 days (days 2-5) hydroxyzine HCl 50 mg tablet 50 mg PO TID PRN (Reason: anxiety) Qty: 30 0RF methylphenidate HCl 20 mg cap,ER sprinkle,biphasic 40-60 20 mg PO DAILY Qty: 14 0RF sertraline 100 mg tablet 100 mg PO DAILY Qty: 14 0RF venlafaxine 150 mg capsule,extended release 24hr 150 mg PO DAILY Qty: 14 0RF hydroxyzine pamoate 50 mg capsule 50 mg PO TID PRN (Reason: anxiety) Qty: 30 0RF methylphenidate HCl 20 mg cap,ER sprinkle,biphasic 40-60 20 mg PO QAM Qty: 14 0RF sertraline 100 mg tablet 100 mg PO DAILY Qty: 14 0RF venlafaxine 150 mg capsule,extended release 24hr 150 mg PO DAILY Qty: 14 0RF venlafaxine 150 mg capsule,extended release 24hr 150 mg PO DAILY methylphenidate HCl 20 mg tablet extended release 20 mg PO DAILY Pulmicort Flexhaler 180 mcg/actuation aerosol powdr breath activated 1 puff Inhalation DIRECTED hydrocodone-acetaminophen 5-325 mg tablet 1 tab PO Q6H PRN (Reason: pain) Qty: 14 0RF hydrocodone-acetaminophen 5-325 mg tablet 1 tab PO Q8H PRN (Reason: pain) Qty: 14 0RF Referrals: Marysol Hameed MD [Primary Care Provider] - Stand Alone Forms: Patient Portal/API ED Sign-out <Abi Dinero DO - Last Filed: 02/12/24 08:46> Cosign ED Attending Cosignature Attestation: I was available for consultation.
== END 2024-02-11 15:29 | disposition home or self-care (01) ==
PROVIDERS: Emergency Provider Student in an Organized Health Care Education/Training Program; PCP Internal Medicine
DX: J45.901 Unspecified asthma with (acute) exacerbation (principal); F17.200 Nicotine dependence, unspecified, uncomplicated; R03.0 Elevated blood-pressure reading, without diagnosis of hypertension
CPT/HCPCS: 93005; 99281; 99283